=== PATIENT | male | born 1970 | race Caucasian/White ===

== ENCOUNTER 2021-04-19 11:50 | Inpatient (IN) | payer BC, OTHER ==
[~2021-04-19] VITALS: Ht 182 cm; Wt 132.4 kg
[2021-04-19] MEDS ORDERED: HEParin (CATH LAB) 2,000 ML IV ONE (12:31)
[2021-04-19] MEDS ORDERED: NS IV 1000 ML 1,000 ML ONE ×2 (12:31→16:10)
[2021-04-19] MEDS ORDERED: NITRO DRIP 25000 MCG/D5W 250 ML IV ONE (12:31)
[2021-04-19] MEDS ORDERED: LIDOCAINE 1% INJ 20 ML 20 ML VIAL ONE (12:31)
[2021-04-19] MEDS ORDERED: HEParin 1000 UNIT/ML (10ML VIAL) FOR BOLUS ONE (12:31)
[2021-04-19] MEDS ORDERED: VERAPAMIL 5 MG/2 ML (CALAN) VIAL IV ONE (12:32)
[2021-04-19 12:41] LABS: BASOPHILS # (AUTO) 0.1 10^3/uL (0.0-0.1); BASOPHILS % (AUTO) 1 % (0-10); EOSINOPHILS # (AUTO) 0.1 10^3/uL (0.0-0.3); EOSINOPHILS % (AUTO) 0 % (0-10); HEMATOCRIT 51 % (40-54); LYMPHOCYTES # (AUTO) 5.8 10^3/uL (1.0-4.0); LYMPHOCYTES % (AUTO) 33 % (12-44); MEAN CORPUSCULAR HEMOGLOBIN 29 pg (25-34); MEAN CORPUSCULAR HGB CONC 30 g/dL (32-36); MEAN CORPUSCULAR VOLUME 98 fL (80-99); MEAN PLATELET VOLUME 11.7 fL (9.0-12.2); MONOCYTES # (AUTO) 1.3 10^3/uL (0.0-1.0); MONOCYTES % (AUTO) 7 % (0-12); NEUTROPHILS # (AUTO) 9.1 10^3/uL (1.8-7.8); NEUTROPHILS % (AUTO) 52 % (42-75); PLATELET COUNT 188 10^3/uL (130-400); WHITE BLOOD COUNT 17.5 10^3/uL (4.3-11.0)
--- NOTE | 2021-04-19 12:50 | ED CPR ---
HPI-CPR General Chief Complaint: Code Blue Stated Complaint: CODE Source of Information: Patient Exam Limitations: No Limitations History of Present Illness Date Seen by Provider: Apr 19, 2021 Time Seen by Provider: 11:30 Initial Comments Patient is a 50yo male who presents to the emergency department from a local exercise/gym facility CPR in progress. local intermodal truck driver and firefighters states that they were called for the patient who had collapsed while exercising. Firefighters report that the patient was awake and talking when they arrived, he was found to be in V. tach. They were preparing to defibrillate him/cardiovert him and he went into V. fib. Patient was intubated on scene. He was defibrillated 2 or 3 times prior to arrival. He had 2 rounds of epinephrine, 1 amp of bicarbonate prior to arrival. When patient arrived he was intubated, attempting to breathe with the BVM. We did achieve brief ROSC. However the patient degenerated back into V. tach and V. fib and required multiple additional shocks after arrival. ACLS protocol was followed. Patient received a lidocaine bolus prior to arrival and additional lidocaine once in the emergency department. He received 1 g of mag, an amp of calcium gluconate, 1 more amp of bicarb multiple additional rounds of epinephrine, and epinephrine drip and finally a 300 mg push of amiodarone. After the last defibrillation and push of amiodarone the patient had ROSC again. He began fighting, moving all 4 extremities actively attempting to pull his ET tube. Patient was paralyzed with rocuronium sedated with fentanyl and Versed shortly afterwards. Maintained a pulse in the 70s to low 100s. Blood pressure systolic 100 up to as high as 130 after ROSC. Patient's EKGs were reviewed by me and also by the clipper machine operator, Dr. Saldana who arrived to the [facility] while in progress. Patient was taken emergently to the cardiac catheterization lab. Initial Complaints: Collapsed Witnessed Arrest: Yes Paramedics Initial Findings: V-FIB (V Tach by report) Pre Hospital Treatment: Bag Valve Mask, CPR/Thumper, Defibrillation, Intubation, Oxygen, IV Fluids, Epinephrine (mg), Lidocaine Bolus (mg), Sodium B icarb (amps) Allergies and Home Medications Allergies Coded Allergies: No Allergy Information Available (Unverified , 04/19/21) Patient Home Medication List Home Medication List Reviewed: Yes Review of Systems Review of Systems Constitutional: see HPI All Other Systems Reviewed Negative Unless Noted: Yes Physical Exam Vital Signs Vital Signs - First Documented 04/19/21 04/19/21 11:50 13:20 Temp 35.6 Pulse 167 Resp 14 B/P (MAP) 163/100 (121) Pulse Ox 98 O2 Delivery Ambu Bag O2 Flow Rate 15.00 FiO2 60 Capillary Refill : Height, Weight, BMI Height: '" Weight: lbs. oz. kg; BMI Method: General Appearance: WD/WN HEENT: Normal ENT Inspection Neck: Normal Inspection Respiratory: Lungs Clear (with bagging through ETT) Cardiovascular: Other (no pulse on presentation) Gastrointestinal: Distended Rectal: Other (patient had defecated after cardiac arrest) Extremity: Normal Inspection Neurologic/Psychiatric: Other (GCS = 3) Skin: Normal Color, Warm/Dry Focused Exam Lactate Level Lactic Acid Level Progress/Results/Core Measures Results/Orders Lab Results Laboratory Tests Test 04/19/21 12:31 04/19/21 12:32 Range/Units White Blood Count 17.5 H 4.3-11.0 10^3/uL Red Blood Count 5.16 4.30-5.52 10^6/uL Hemoglobin 15.0 13.3-17.7 g/dL Hematocrit 51 40-54 % Mean Corpuscular Volume 98 80-99 fL Mean Corpuscular Hemoglobin 29 25-34 pg Mean Corpuscular Hemoglobin Concent 30 L 32-36 g/dL Red Cell Distribution Width 13.6 10.0-14.5 % Platelet Count 188 130-400 10^3/uL Mean Platelet Volume 11.7 9.0-12.2 fL Immature Granulocyte % (Auto) 7 % Neutrophils (%) (Auto) 52 42-75 % Lymphocytes (%) (Auto) 33 12-44 % Monocytes (%) (Auto) 7 0-12 % Eosinophils (%) (Auto) 0 0-10 % Basophils (%) (Auto) 1 0-10 % Neutrophils # (Auto) 9.1 H 1.8-7.8 10^3/uL Lymphocytes # (Auto) 5.8 H 1.0-4.0 10^3/uL Monocytes # (Auto) 1.3 H 0.0-1.0 10^3/uL Eosinophils # (Auto) 0.1 0.0-0.3 10^3/uL Basophils # (Auto) 0.1 0.0-0.1 10^3/uL Immature Granulocyte # (Auto) 1.2 H 0.0-0.1 10^3/uL Neutrophils % (Manual) 47 % Lymphocytes % (Manual) 34 % Monocytes % (Manual) 11 % Basophils % (Manual) 2 % Band Neutrophils 2 % Reactive Lymphocytes 4 % Blood Morphology Comment NORMAL SARS-CoV-2 RNA (RT-PCR) Not Detected Not Detecte My Orders Orders - MYLENE HARRIS MD Creatine Kinase (04/19/21 12:44) Creatine Kinase Mb (04/19/21 12:44) Covid 19 Inhouse Test (04/19/21 12:44) Arterial Blood Gas (04/19/21 12:44) Ekg Tracing (04/19/21 12:44) Ekg-Prn For Chest Pain Or Rhyt (04/19/21 12:44) Drug Screen Stat (Urine) (04/19/21 13:13) Vital Signs/I&O 04/19/21 04/19/21 04/19/21 11:50 12:42 13:20 Temp 35.6 Pulse 167 90 114 Resp 14 16 20 B/P (MAP) 163/100 (121) 112/67 Pulse Ox 98 97 96 O2 Delivery Ambu Bag Mechanical Ventilator O2 Flow Rate 15.00 FiO2 60 Initial ECG Impression Date: Apr 19, 2021 Initial ECG Impression Time: 11:53 Initial ECG Rate: 197 Initial ECG Rhythm: A Fib/Flutter Initial ECG Impression: Atrial Fibrillation w/RVR EKG : EKG Time: 12:21 Rate: 91 Rhythm: Normal Sinus Critical Care Note Critical Care Start Time: 11:30 Stop Time: 12:30 Total Time (minutes) 1 hour critical care time in the evaluation and management of this patient with cardiac arrest. Time includes management of ACLS protocol, continued resuscitative efforts, review of the medical record, review and interpretation of laboratory studies, discussion with cardiology. Departure Impression Primary Impression: Cardiac arrest Disposition: ADMITTED INPATIENT Condition: Stable Admissions Decision to Admit Reason: Admit from ER (General) Decision to Admit/Date: Apr 19, 2021 Time/Decision to Admit Time: 12:40 MYLENE HARRIS MD Apr 19, 2021 12:50
--- NOTE | 2021-04-19 12:54 | Consultation-Cardiology ---
HPI-Cardiology Cardiology Consultation: Date of Consultation 04/19/21 Date of Admission 04/19/2021 Attending Physician Admitting Physician Consulting Physician PALOMA GANDHI JR, MD HPI: Time Seen by a Provider: 12:30 Chief Complaint: Reason for consultation: Status post out of hospital witnessed cardiac arrest. Jaydon is a 50-year-old man with no known history of coronary artery disease. I obtained the history from the senior marketing coordinator, emergency room physician and the patient's significant other. Apparently, he was at a local gym exercising and suddenly collapsed. Some bystanders came to his attention and were having trouble arousing him. Someone called 911 and upon arrival of the emergency squad, he was minimally responsive. Shortly after they hooked up the monitor, he went into ventricular tachycardia and before they could shock him, this degenerated into ventricular fibrillation. ACLS protocol was then initiated in the field. He was intubated in the field. He received 1 or 2 other defibrillations. Intraosseous access was obtained. He was given IO lidocaine and started on a li docaine infusion and brought to the emergency room for further evaluation. In the emergency room he was pulseless and continued to have ventricular tachycardia and fibrillation. CPR was continued. Multiple rounds of ACLS protocol medication were administered. I was also notified around this time. When I saw the patient in the emergency room, he was still in a disorganized rhythm with no pulse and CPR was continued. An amiodarone bolus was administered. The defibrillator patches were adjusted and after 1 more defibrillation, the patient converted to a sinus rhythm. At that point, he had spontaneous circulation. He started becoming combative and actually had to be paralyzed. At that point, we elected to proceed with emergency cardiac catheterization. No other history could be obtained from the patient. Review of Systems-Cardiology Review of Systems Other comments Not obtainable due to the patient's clinical status. WIL-Yrnwxr-Odteks Hx Past Medical History PMH As described under Assessment. Family Medical History Family Medical History: Not obtainable due to the patient's clinical status. Allergies and Home Medications Allergies Coded Allergies: No Allergy Information Available (Unverified , 04/19/21) Patient Home Medication List Home Medication List Reviewed: Yes Exam Vital Signs Vital Signs Date Time Temp Pulse Resp B/P (MAP) Pulse Ox O2 Delivery O2 Flow Rate FiO2 04/19/21 14:28 37.2 Mechanical Ventilator 60.00 04/19/21 14:00 109 19 97 Physical Exam General: He is intubated and sedated. Well nourished and appears stated age. Eye: Conjunctivae are clear. There are no xanthelasma. HENT: Normocephalic. Atraumatic. Carotid pulsations 2/2 without bruits. Neck: Jugular venous pressure does not appear elevated. No thyromegaly a ppreciated. Respiratory: Symmetrical expansion bilaterally. Coarse breath sounds to the ventilator. Cardiovascular: Normal rate. Regular rhythm. No murmur. No gallop. Point of maximal impulse is not appear displaced. Good pulses equal in all extremities. No edema. Gastrointestinal: Soft. Normal bowel sounds. Skin: Skin turgor is normal. There is no pallor. Musculoskeletal: No kyphosis or scoliosis appreciated. Neurologic: Intubated and sedated. However, once the patient regained spontaneous circulation, he was moving all 4 extremities and trying to reach up to remove the endotracheal tube. At that point he had to be paralyzed for his own safety. Psychiatric: Not obtainable due to clinical status. Labs Laboratory Tests Test 04/19/21 00:00 04/19/21 12:31 04/19/21 12:32 04/19/21 13:53 Range/Units White Blood Count 17.5 H 4.3-11.0 10^3/uL Red Blood Count 5.16 4.30-5.52 10^6/uL Hemoglobin 15.0 13.3-17.7 g/dL Hematocrit 51 40-54 % Mean Corpuscular Volume 98 80-99 fL Mean Corpuscular Hemoglobin 29 25-34 pg Mean Corpuscular Hemoglobin Concent 30 L 32-36 g/dL Red Cell Distribution Width 13.6 10.0-14.5 % Platelet Count 188 130-400 10^3/uL Mean Platelet Volume 11.7 9.0-12.2 fL Immature Granulocyte % (Auto) 7 % Neutrophils (%) (Auto) 52 42-75 % Lymphocytes (%) (Auto) 33 12-44 % Monocytes (%) (Auto) 7 0-12 % Eosinophils (%) (Auto) 0 0-10 % Basophils (%) (Auto) 1 0-10 % Neutrophils # (Auto) 9.1 H 1.8-7.8 10^3/uL Lymphocytes # (Auto) 5.8 H 1.0-4.0 10^3/uL Monocytes # (Auto) 1.3 H 0.0-1.0 10^3/uL Eosinophils # (Auto) 0.1 0.0-0.3 10^3/uL Basophils # (Auto) 0.1 0.0-0.1 10^3/uL Immature Granulocyte # (Auto) 1.2 H 0.0-0.1 10^3/uL Neutrophils % (Manual) 47 % Lymphocytes % (Manual) 34 % Monocytes % (Manual) 11 % Basophils % (Manual) 2 % Band Neutrophils 2 % Reactive Lymphocytes 4 % Blood Morphology Comment NORMAL SARS-CoV-2 RNA (RT-PCR) Not Detected Not Detecte Glucometer 147 H 70-110 MG/DL Radiology CARDIAC CATHETERIZATION (04/19/2021): 1. Markedly elevated left ventricular end-diastolic pressure. 2. Angiographically normal-appearing coronary arteries in a right dominant system. ECHOCARDIOGRAM (04/19/2021): 1. This is a technically difficult study due to poor image quality secondary to the patient's body habitus and intubated status. 2. There is moderate left ventricular dilatation with normal wall thickness. There is severe left ventricular systolic dysfunction with an estimated ejection fraction of 20-25% with global hypokinesis. 3. The left ventricular diastolic parameters appear normal. 4. The right ventricle is normal in size but with at least mildly reduced function. 5. The estimated pulmonary artery systolic pressure is 29 mmHg plus right atrial pressure. ECG Impression ECG Initial ECG Impression Date: Apr 19, 2021 Comment Sinus rhythm with left atrial abnormality and nonspecific intraventricular conduction delay. Diagnosis/Problems Diagnosis/Problems (1) Cardiac arrest Assessment & Plan: Exact etiology unclear. There is no evidence of Sabino- Parkinson-White, Brugada syndrome, or prolonged or short QT on his resting electrocardiogram. He underwent emergency cardiac catheterization that did not show any significant coronary artery disease. On the other hand, he has severe left ventricular systolic dysfunction. This raises a concern for cardiomyopathy of undetermined etiology with primary arrhythmogenic cardiac arrest. On the other hand, he could have globally stunned myocardium from the prolonged course of resuscitation. I will plan on a follow-up echocardiogram in the next 24-48 hours to see if there is any improvement in the ejection fraction. I will start him on guideline directed medical therapy with low-dose beta-jinny and ROSSANA inhibitor. (2) Ventricular fibrillation Assessment & Plan: Unclear etiology. As above, there is no evidence of prolonged or short QT on his resting electrocardiogram. We may need to consider a LifeVest prior to discharge. I will take the liberty of placing an order for a LifeVest. (3) Cardiomyopathy Assessment & Plan: As above, unclear whether or not this was a pre-existing cardiomyopathy or if he has global stunning due to the prolonged resuscitative efforts. As above, I will place him on guideline directed medical therapy at very low doses. I will plan on a follow-up echocardiogram in the next 24 to 48 hours. (4) Acute on chronic respiratory failure with hypoxemia Assessment & Plan: This was most likely due to the cardiac arrest. He is now intubated. We may want to consider keeping him on the ventilator overnight and then gradually withdrawing sedation tomorrow and see if we can wean him from the ventilator sometime tomorrow. The eICU is also following the patient in regards to ventilator management. PALOMA GANDHI JR, MD Apr 19, 2021 12:54
--- NOTE | 2021-04-19 12:56 | Pre-Op Note & Conscious Sedat ---
Pre-Operative Progress Note H&P Reviewed The H&P was reviewed, patient examined and no changes noted. Date H&P Reviewed: Apr 19, 2021 Time H&P Reviewed: 12:55 Conscious Sedation Pre-Proced Time 12:55 ASA Score 4 For ASA 3 and 4: Consider anesthesia and medical clearance. Also, for patients with a history of failed moderate sedation consider anesthesia. Airway Lungs Heart ASA score ASA 1: a normal healthy patient ASA 2: a patient with a mild systemic disease (mid diabetes, controlled hypertension, obesity ASA 3: a patient with a severe systemic disease that limits activity (angina, COPD, prior Myocardial infarction) ASA 4: a patient with an incapacitating disease that is a constant threat to life (CHF, renal failure) ASA 5: a moribund patient not expected to survive 24 hrs. (ruptured aneurysm) ASA 6: a declared brain- patient whose organs are being harvested. For emergent operations, add the letter E after the classification Mallampati Classification Grade 3 Sedation Plan Analgesia, Amnesia, Plan communicated to team members, Discussed options with patient/fam, Discussed risks with patient/fam The patient is an appropriate candidate to undergo the planned procedure, sedation, and anesthesia. The patient immediately re-assessed prior to indication. The patient was intubated and placed on mechanical ventilation in the emergency room. He was then administered a paralytic agent. PALOMA GANDHI JR, MD Apr 19, 2021 12:56
[2021-04-19] MEDS ORDERED: PROPOFOL DRIP (ICU) 100 ML IV ONE (13:00)
--- NOTE | 2021-04-19 13:03 | Diagnostic Imaging Report ---
INDICATION: Post code, intubation COMPARISON: None available TECHNIQUE: Single radiograph of the chest dated 04/19/2021 FINDINGS: Endotracheal tube is present with the distal tip overlying the tracheal air column at the level of the clavicular heads. Enteric catheter is present with the distal tip terminating overlying the left upper abdomen, likely near the GE junction. The sidehole appears to be within the distal esophagus. The cardiac silhouette is enlarged. Central pulmonary vascular congestion is present. Low lung volumes. Mild left greater than right predominantly interstitial opacities. No significant pleural effusion. No pneumothorax. No acute osseous abnormality. IMPRESSION: Cardiomegaly with central pulmonary vascular congestion. Low lung volumes with mild left greater than right bibasilar atelectasis and/or pneumonitis. Enteric catheter is present, though the sidehole is within the distal esophagus. Recommend advancement of 8 cm for optimal positioning. Additional findings as above. Dictated by: Dictated on workstation # [id number]
[2021-04-19 13:20] VITALS: BP 162/119
[2021-04-19 13:31] LABS: BAND NEUTROPHILS 2 %; BASOPHILS % (MANUAL) 2 %; LYMPHOCYTES % (MANUAL) 34 %; MONOCYTES % (MANUAL) 11 %; NEUTROPHILS % (MANUAL) 47 %; RBC MORPH NORMAL; REACTIVE LYMPHOCYTES 4 %
--- NOTE | 2021-04-19 14:30 | Consultation - Hospitalist ---
HPI History of Present Illness: HPI/Chief Complaint Pt is a 50yoCM with an apparent PMH of a fib who presented to the ER due to cardiac arrest. He is unable to provide me any history and all history is obtained from the records. He was apparently exercising at a local gym and collapsed. Per ER note he was awake and tlaking with EMS when they arrived and he was found to be in v-tach. They were preparing for synchronized cardioversion in the field when he converted to v fib. He was then intuabted and defibrillated but remained in refractory v fib. In the ER here he was started on lidocaine and they continued to follow ACLS algorithms for pulseless v-fib. He ultimately developed ROSC after a 300mg amiodarone bolus and defibrillation. He was taken emergently to the clay processing labourer for possible intervention. Per Dr Saldana cath was clean. He was admitted to the ICU and I am consulted for medical management. Source: patient Date Seen 04/19/21 Attending Physician Samy Saldana Jr, MD PCP No,Local Physician Referring Physician Date of Admission Apr 19, 2021 at 13:37 Home Medications & Allergies Home Medications Reviewed patient Home Medication Reconciliation performed by pharmacy medication reconciliations cooking appliance repair technician and/or nursing. Patients Allergies have been reviewed. Past Abaujle-Tetjyt-Iqmvvp Hx Past Medical History Atrial Fibrillation history limited as no family available and he has never been to this facility before Family Medical History Reviewed Nursing Family Hx No Pertinent Family Hx Review of Systems ROS-Unable to Obtain: intubated and sedated Constitutional: see HPI Physical Exam Physical Exam Vital Signs Vital Signs - First Documented 04/19/21 11:50 Temp 35.6 Pulse 167 Resp 14 B/P (MAP) 163/100 (121) Pulse Ox 98 O2 Delivery Ambu Bag O2 Flow Rate 15.00 Capillary Refill : Height, Weight, BMI Height: '" Weight: lbs. oz. kg; 42.00 BMI Method: General Appearance: Obese, Other (intubated, sedated) HEENT: No Scleral Icterus (L), No Scleral Icterus (R); Other (pupils reactive though right appears more sluggish both accomodate) Neck: Normal Inspection, Supple Respiratory: Lungs Clear, No Accessory Muscle Use, No Respiratory Distress Cardiovascular: Regular Rate, Rhythm, No Murmur Gastrointestinal: Normal Bowel Sounds, Non Tender, Soft Genital/Rectal: Other (argueta in place with red tinged urine) Extremity: Normal Capillary Refill, No Calf Tenderness, No Pedal Edema Neurologic/Psychiatric: Other (sedated and intubated- did not respond- had received paralytics in clay processing labourer) Results Results/Procedures Labs Laboratory Tests 04/19/21 12:31 Patient resulted labs reviewed. Imaging: Reviewed Imaging Report Imaging [facility], [place] NAME: JOHAN CASTILLO [facility] REC#: [id number] PT STATUS: REG ER : 1970 PHYSICIAN: ASTRID BASS CLIP RIVETER ADMIT DATE: 04/19/21/ER Draft Date of Exam:04/19/21 CHEST 1 VIEW, AP/PA ONLY INDICATION: Post code, intubation COMPARISON: None available TECHNIQUE: Single radiograph of the chest dated 04/19/2021 FINDINGS: Endotracheal tube is present with the distal tip overlying the tracheal air column at the level of the clavicular heads. Enteric catheter is present with the distal tip terminating overlying the left upper abdomen, likely near the GE junction. The sidehole appears to be within the distal esophagus. The cardiac silhouette is enlarged. Central pulmonary vascular congestion is present. Low lung volumes. Mild left greater than right predominantly interstitial opacities. No significant pleural effusion. No pneumothorax. No acute osseous abnormality. IMPRESSION: Cardiomegaly with central pulmonary vascular congestion. Low lung volumes with mild left greater than right bibasilar atelectasis and/or pneumonitis. Enteric catheter is present, though the sidehole is within the distal esophagus. Recommend advancement of 8 cm for optimal positioning. Additional findings as above. Dictated on workstation # [id number] Dict: 04/19/21 1259 Trans: 04/19/21 1302 CVB [id number] Interpreted by: AUDREY ZAVALA MD Electronically signed by: Assessment/Plan Assessment and Plan Assess & Plan/Chief Complaint Cardiac arrest due to ventricular arrythmia with ROSC Acute respiratory failure s/p cath with reported clean coronaries currently on epi gtt Will give paralytics some time to wear off and if still unresponsive with likely start therapeutic hypothermia was reportedly following commands and making purposeful movement in the ER and evne clay processing labourer prior to paralytics CT head ordered Covid negative UDS ordered Discussed with TeleICU Maintain on vent- management per eICU Leukocytosis Likely reactive Hyperglycemia Nonfasting and probably reactive as well trend, add sliding scale DVT ppx: SCDs only until CT head back Diagnosis/Problems Diagnosis/Problems (1) Acute respiratory failure (2) Ventricular fibrillation (3) Ventricular tachycardia (4) Hyperglycemia (5) Cardiogenic shock (6) Cardiac arrest BUBBA LOPEZ MD Apr 19, 2021 14:30
--- NOTE | 2021-04-19 14:52 | Tele-ICU Consult ---
History of Present Illness History of Present Illness Date Seen by Provider: Apr 19, 2021 Time Seen by Provider: 14:51 Date of Admission 04/19/2021 Reason for Visit: Cardiac arrest History of Present Illness This gentleman who is a 58-year-old male apparently was exercising at local gym and had eye redness collapse and EMS was called and they found him in itially in ventricular tachycardia which are deteriorated to ventricular fibrillation. CPR done intubated brought to the emergency room. Immediately seen by solution spec and Came to the cardiac catheterization lab and coronary angiogram done which is shoulder no significant coronary artery dis ease. I have discussed with the attending physician and subsequently ordered a CTA of the head which did not reveal any bleeding or acute abnormalities. Patient is waking up and trying to remove ET tube another tubes. Hence he is not cooled therapeutically. Is currently on a low-dose epinephrine drip and propofol drip. I have reviewed his x-rays and the laboratory data. According to the ER attending physician patient is on Xarelto, Cardizem and some other medications suspicious that he may have a atrial fibrillation prearrest. I have video visited him and discussed with the bedside RN as well. At this time we'll keep him sedated and not planning to extubate him because of the uncertainty of the stability of his cardiovascular system. No further history available however his drug screen ordered and I will try to get a history from the family whether he uses any energy drinks such as 5-hour energy drink. It is not clear whether he has any drug abuse or tobacco abuse. Allergies and Home Medications Allergies Coded Allergies: No Allergy Information Available (Unverified , 04/19/21) Past Medical/Social/Family Hx Past Medical History history limited as no family available and he has never been to this facility before Review of Systems Constitutional: see HPI (per attending physician) Other per attending physician Sepsis Event Evaluation Height, Weight, BMI Height: '" Weight: lbs. oz. kg; 42.00 BMI Method: Exam Exam Patient acknowledged, consented, and participated in this virtual visit which was conducted using real time audio/video Vital Signs Date Time Temp Pulse Resp B/P (MAP) Pulse Ox O2 Delivery O2 Flow Rate FiO2 04/19/21 14:28 37.2 Mechanical Ventilator 60.00 04/19/21 14:00 109 19 155/125 (135) 97 Mechanical Ventilator 60.00 04/19/21 13:45 111 19 162/127 (139) 97 Mechanical Ventilator 60.00 04/19/21 13:41 113 04/19/21 11:50 35.6 167 14 163/100 (121) 98 Ambu Bag 15.00 Height & Weight Height: '" Weight: lbs. oz. kg; 42.00 BMI Method: General Appearance: Obese, Other (intubated, sedated) HEENT: No Scleral Icterus (L), No Scleral Icterus (R); Other (pupils reactive though right appears more sluggish both accomodate) Neck: Normal Inspection, Supple Respiratory: Lungs Clear, No Accessory Muscle Use, No Respiratory Distress Cardiovascular: Regular Rate, Rhythm, No Murmur Capillary Refill: Greater Than 3 Seconds Extremity: Normal Capillary Refill, No Calf Tenderness, No Pedal Edema Neurologic/Psychiatric: Other (sedated and intubated- did not respond- had received paralytics in laboratory associate) Other comments ros per attending physician Results Lab Laboratory Tests 04/19/21 12:31 Radiology cxr reviewed by myself Assessment/Plan Assessment/Plan 1. Weakness due to cardiac arrest imaging due to ventricular fibrillation/ventricular tachycardia of undetermined etiology. 2. Acute hypoxic respiratory failure secondary to the abnormal 3. Questionable history of atrial fibrillation and on anticoagulant therapy. 4. Hypotension secondary to cardiac arrest of undetermined etiology. Recommendations 1. Continue mechanical ventilatory support at least for today and will revisit his mental status tomorrow and depending upon overall clinical situation will consider spontaneous breathing trial tomorrow. 2. Epinephrine drip to keep map over 65 3. Sedation with propofol and Precedex as tolerated 4. Ulcer prophylaxis with Protonix and SCDs for DVT prophylaxis. 5. Awaiting INR and urine drug screen and other laboratory data. 6. Discussed with the attending physician Dr. Nelson Critical Care: Ventilator Management Time spent with patient (mins): 60 Diagnosis/Problems Problems/Diagonsis (1) Ventricular fibrillation (2) Cardiac arrest (3) Cardiogenic shock (4) Acute respiratory failure BRIAN CAREY MD Apr 19, 2021 14:52
--- NOTE | 2021-04-19 15:15 | Cardiac Cath Report ---
CARDIAC CATHETERIZATION DATE OF PROCEDURE: 04/19/2021 INDICATION: Cardiac arrest. HISTORY: The patient is a 50 year old male, with no previously known history of coronary artery disease. He was exercising at a local gym and had witness collapsed. He was minimally responsive. 911 was called and on arrival of the emergency squad, he was again minimally responsive. When he was attached to the monitor, he was in ventricular tachycardia. As the assisted living home director were preparing to perform a defibrillation, the patient went into ventricular fibrillation. He subsequently underwent defibrillation and ACLS protocol was initiated. He was intubated in the field. He was brought to the emergency room for further evaluation and treatment. After almost 50 minutes of ACLS and CPR, the patient regained spontaneous circulation. An electrocardiogram did not show any evidence of a STEMI at that time. However, in light of his age and the outpatient cardiac arrest, we elected to proceed with emergency cardiac catheterization. PROCEDURES PERFORMED: 1. Left heart catheterization with hemodynamic measurements. 2. Diagnostic [place] coronary angiography PROCEDURE DESCRIPTION: Left heart catheterization was performed through the right radial artery utilizing a 6 Urdu system by percutaneous approach. Standard Pio catheters were utilized for the diagnostic portion of the procedure. All catheters were exchanged over a guidewire. RESULTS: HEMODYNAMICS: The aortic pressure was 178/104 mmHg. The left ventricular pressure was 170 over 0 mmHg with a left ventricular end-diastolic pressure of 40 mmHg. There was no significant pressure gradient upon pullback across aortic valve. CORONARY ANGIOGRAPHY: Left main coronary artery: Large and free of significant disease. Left anterior descending coronary artery: Free of significant disease. Left circumflex coronary artery: Free of significant disease. Right coronary artery: Large in caliber, dominant, and free of significant disease. IMPRESSION: 1. Markedly elevated left ventricular end-diastolic pressure. 2. Angiographically normal-appearing coronary arteries in a right dominant system. PALOMA GANDHI JR, MD Apr 19, 2021 15:15
[2021-04-19 15:17] VITALS: BP 89/61
[2021-04-19] MEDS ORDERED: LIDOCAINE DRIP PRE-MIX 2 GM/500 ML BAG IV ONE (15:23)
[2021-04-19] MEDS ORDERED: fentaNYL INJ 100 MCG/2 ML AMP IV ONE (15:23)
[2021-04-19] MEDS ORDERED: AMIODARONE (BOLUS) 150 MG/3 ML IV ONE (15:23)
[2021-04-19] MEDS ORDERED: SODIUM BICARB 8.4% 50 MEQ/50 ML (ABBOTT) SYR INJ ONE (15:23)
[2021-04-19] MEDS ORDERED: LIDOCAINE BOLUS 100 MG/5 ML (IMS) SYR INJ ONE (15:23)
[2021-04-19] MEDS ORDERED: ROCURONIUM 10 MG/ML 5 ML SYRINGE IV ONE (15:23)
[2021-04-19] MEDS ORDERED: MIDAZOLAM 5 MG/5 ML (VERSED) VIAL IJ ONE (15:23)
[2021-04-19] MEDS ORDERED: CALCIUM CHLORIDE 1 GM/10 ML (IMS) SYR INJ ONE (15:23)
[2021-04-19] MEDS ORDERED: EPINEPHrine 0.1 MG/ML 10 ML (HOSPIRA) SYR IJ ONE (15:23)
[2021-04-19] MEDS ORDERED: NS 250 ML (IVPB) BAG IV ONE (15:23)
[2021-04-19] MEDS ORDERED: CATHETER FLUSH 10 ML SYR IV ONE (15:23)
[2021-04-19] MEDS ORDERED: EPINEPHrine INJECTION 1 MG/ML AMP IJ ONE (15:23)
[2021-04-19] MEDS ORDERED: MAGNESIUM SULF 5 GM/10 ML VIAL IV ONE (15:23)
[2021-04-19] MEDS ORDERED: DexMEDEtomidine 250 ML DRIP 250 ML IV ONE (15:30)
--- NOTE | 2021-04-19 15:33 | Diagnostic Imaging Report ---
PROCEDURE: CT head wo r/o stroke. TECHNIQUE: Multiple contiguous axial images were obtained through the brain without the use of intravenous contrast. Auto Exposure Controls were utilized during the CT exam to meet ALARA standards for radiation dose reduction. INDICATION: ICU code. Stroke. COMPARISON: None. FINDINGS: No intracranial hemorrhage, mass effect, hydrocephalus, or extra-axial fluid collections. No CT evidence of a territorial infarction. Osseous structures are intact. Paranasal sinuses and mastoids are clear. ETT. IMPRESSION: No acute intracranial CT findings. Dictated by: Dictated on workstation # [id number]
[2021-04-19] MEDS ORDERED: inSUlin ASPART (NovoLOG) 1 UNIT/0.01 ML (CHARGE PER UNIT) SC SCH (16:00)
--- NOTE | 2021-04-19 16:13 | Consultation - Surgery ---
History of Present Illness History of Present Illness Patient Consulted On(rosaura/time) 04/19/21 16:07 Time Seen by Provider: 15:43 Reason for Visit: Cardiac arrest History of Present Illness Surgery asked to consult regarding Venous Insufficiency, Hypotension. HPI per ED: Patient is a 50yo male who presents to the emergency department from a local exercise/gym facility CPR in progress. 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 Firefighters report that the patient was awake and talking when they arrived, he was found to be in V. tach. They were preparing to defibrillate him/cardiovert him and he went into V. fib. Patient was intubated on scene. He was defibrillated 2 or 3 times prior to arrival. He had 2 rounds of epinephrine, 1 amp of bicarbonate prior to arrival. When patient arrived he was intubated, attempting to breathe with the BVM. We did achieve brief ROSC. However the patient degenerated back into V. tach and V. fib and required multiple additional shocks after arrival. ACLS protocol was followed. Patient received a lidocaine bolus prior to arrival and additional lidocaine once in the emergency department. He received 1 g of mag, an amp of calcium gluconate, 1 more amp of bicarb multiple additional ro unds of epinephrine, and epinephrine drip and finally a 300 mg push of amiodarone. After the last defibrillation and push of amiodarone the patient had ROSC again. He began fighting, moving all 4 extremities actively attempting to pull his ET tube. Patient was paralyzed with rocuronium sedated with fentanyl and Versed shortly afterwards. Maintained a pulse in the 70s to low 100s. Blood pressure systolic 100 up to as high as 130 after ROSC. Patient's EKGs were reviewed by me and also by the nuclear spectroscopist, Dr. Saldana who arrived to the code while in progress. When I saw pt he was intubated and mostly sedated, could not answer questions and no family at bedside. Allergies and Home Medications Allergies Coded Allergies: No Allergy Information Available (Unverified , 04/19/21) Patient Home Medication List Home Medication List Reviewed: Yes (list of possible meds reviewed it is not an official home med list) Past Hqgnlgl-Sgejuo-Sqhrtm Hx Patient Social History Have you traveled recently?: Unable to obtain Cardiovascular Cardiac Disorders: Atrial Fibrillation Family Medical History Significant Family History: Other Conditions/Hx (unable to obtain, pt intubated) Other Unable to obtain, pt intubated Review of Systems-General ROS-Unable to Obtain: pt intubated and sedated Physical Exam-General Problems Physical Exam Vital Signs Vital Signs - First Documented 04/19/21 04/19/21 11:50 15:17 Temp 35.6 Pulse 167 Resp 14 B/P (MAP) 163/100 (121) Pulse Ox 98 O2 Delivery Ambu Bag O2 Flow Rate 15.00 FiO2 40 Capillary Refill : Greater Than 3 Seconds General Appearance: mild distress, obese Eyes: Bilateral Eye PERRL, Bilateral Eye EOMI HEENT: No scleral icterus (R), No scleral icterus (L); other (ET tube in place) Respiratory: lungs clear, no respiratory distress, no accessory muscle use Cardiovascular: no murmur, tachycardia Gastrointestinal: non tender, soft, no organomegaly Extremities: no pedal edema, normal capillary refill Neurologic/Psychiatric: other (unable to obtain) Skin: normal color, warm/dry Lymphatic: no adenopathy (neck, axilla or groin) Data Review Labs Laboratory Tests 04/19/21 00:00: 04/19/21 12:31: White Blood Count 17.5H, Red Blood Count 5.16, Hemoglobin 15.0, Hematocrit 51, Mean Corpuscular Volume 98, Mean Corpuscular Hemoglobin 29, Mean Corpuscular Hemoglobin Concent 30L, Red Cell Distribution Width 13.6, Platelet Count 188, Mean Platelet Volume 11.7, Immature Granulocyte % (Auto) 7, Neutrophils (%) (Auto) 52, Lymphocytes (%) (Auto) 33, Monocytes (%) (Auto) 7, Eosinophils (%) (Auto) 0, Basophils (%) (Auto) 1, Neutrophils # (Auto) 9.1H, Lymphocytes # (Auto) 5.8H, Monocytes # (Auto) 1.3H, Eosinophils # (Auto) 0.1, Basophils # (Auto) 0.1, Immature Granulocyte # (Auto) 1.2H, Neutrophils % (Manual) 47, Lymphocytes % (Manual) 34, Monocytes % (Manual) 11, Basophils % (Manual) 2, Band Neutrophils 2, Reactive Lymphocytes 4, Blood Morphology Comment NORMAL 04/19/21 12:32: SARS-CoV-2 RNA (RT-PCR) Not Detected 04/19/21 13:53: Glucometer 147H Assessment/Plan Assessment/Plan Assessment/Plan Venous Insufficiency Hypotension S/P Cardiac Arrest and CPR Pt needed central line and art line, placed with US guidance. [facility]. DESTINY AGUERO DO Apr 19, 2021 16:13
--- NOTE | 2021-04-19 16:16 | Progress Note-Post Operative ---
Post-Operative Progess Note Surgeon (s)/Casting Machine Operator (s) Surgeon DESTINY AGUERO DO Casting Machine Operator: none Pre-Operative Diagnosis Venous insufficiency, Hypotension Post-Operative Diagnosis Same Procedure & Operative Findings Date of Procedure 04/19/21 Procedure Performed/Findings Central line placement Arterial line placement The patient was in their bed in the ICU, was prepped and draped in the sterile fashion. A surgical pause was performed. Ultrasound was used to locate the internal jugular vein. Once located anesthetic was infiltrated above it. Using an 18 gauge finder needle and watching with the US; the right internal jugular vein was accessed. Dark nonpulsatile blood was withdrawn. The wire was inserted. Fluoroscopy assured proper placement. The needle was removed. A [#11] blade scalpel was used to make a stab incision along the guidewire. Dilator sheath was then advanced over the wire using Seldinger technique and the dilator was removed. The [place] catheter was inserted over the guide wire using the Seldinger technique. The [place] wire was removed. The catheter was then accessed in all three ports without difficulty. Good flash of blood was seen and it was then flushed with saline. The catheter was sutured in place with 3-0 silk on a val needle. The areas were then washed and dried. Sterile dressing was placed over incision. The patient tolerated the procedure well without complication. I next turned my attention to placing an arterial line. Using ultrasound I found the left radial artery. I then sterilely prepped the area and using US watched as the needle advanced into the artery, good flash of blood was seen. Able to easily advance the guidewire and then advance the catheter. Removed the needle and the catheter; hooked the arterial line tubing up and good wave form seen on the monitor. Sterile dressing placed and extra tape to keep arterial line in place. Pt tolerated this well. Anesthesia Type pt on propofol Estimated Blood Loss Estimated blood loss (mL): scant Specimens/Packing Specimens Removed none DESTINY AGUERO DO Apr 19, 2021 16:16
[2021-04-19] MEDS ORDERED: NOREPINEPHRINE 8 MG/250 ML 250 ML IV ONE (17:06)
[2021-04-19 17:11] LABS: ABG BASE EXCESS -11.8 MMOL/L (-2.5-2.5); ABG OXYGEN SATURATION 99 % (94-100); ABG PCO2 40 MMHG (35-45); ABG PO2 136 MMHG (79-93)
[2021-04-19 17:12] LABS: ALLENS TEST ART LINE; INSPIRED O2 50%; PATIENT TEMP 37.3; VENTILATOR YES
[2021-04-19 17:17] LABS: ABG PH 7.19 (7.37-7.43)
[2021-04-19] MEDS: NOREPINEPHRINE 8 MG/250 ML 250 ML IV SCH (17:19)
[2021-04-19] MEDS: DOBUTamine DRIP 250 ML IV SCH ×3 (17:22→23:42)
[2021-04-19] MEDS ORDERED: SODIUM BICARB 8.4% 50 MEQ/50 ML VIAL IV ONE (17:30)
[2021-04-19] MEDS ORDERED: SODIUM BICARB 8.4% 50 MEQ/50 ML (ABBOTT) SYR IV NR (17:30)
[2021-04-19 17:38] LABS: ALBUMIN 3.7 GM/DL (3.2-4.5); POTASSIUM 3.5 MMOL/L (3.6-5.0)
[2021-04-19 17:39] LABS: CALCIUM 8.8 MG/DL (8.5-10.1)
[2021-04-19 17:41] LABS: TOTAL PROTEIN 6.2 GM/DL (6.4-8.2)
[2021-04-19] MEDS: PROPOFOL DRIP (ICU) 100 ML IV SCH ×3 (17:41→22:34)
[2021-04-19 17:44] LABS: CREATININE SERUM 2.36 MG/DL (0.60-1.30)
[2021-04-19] MEDS: DexMEDEtomidine 250 ML DRIP 250 ML IV SCH (17:50)
[2021-04-19 17:55] LABS: CREATINE KINASE MB 6.1 NG/ML (<6.6)
[2021-04-19 18:10] VITALS: BP 107/84
[2021-04-19] MEDS ORDERED: POTASSIUM CL 10MEQ/50ML IVPB 50 ML IV SCH (18:45)
[2021-04-19] MEDS: POTASSIUM CL 10MEQ/50ML IVPB 50 ML IV SCH ×2 (19:31→20:39)
[2021-04-19 20:48] LABS: ABG BASE EXCESS -2.7 MMOL/L (-2.5-2.5); ABG OXYGEN SATURATION 99 % (94-100); ABG PCO2 41 MMHG (35-45); ABG PH 7.35 (7.37-7.43); ABG PO2 152 MMHG (79-93); ABG TCO2 23.1 MMOL/L (21.0-31.0)
[2021-04-19 20:49] LABS: ALLENS TEST ART LINE; INSPIRED O2 35%; VENTILATOR YES
[2021-04-19 20:50] LABS: PATIENT TEMP 37.7
[2021-04-19] MEDS: CAPTOPRIL 25 MG (CAPOTEN) TAB PO SCH ×2 (20:53→20:54)
[2021-04-19 21:33] VITALS: BP 101/60
[2021-04-19] MEDS ORDERED: ACETAMINOPHEN 325 MG TABLET PO PRN (23:45)
[2021-04-20] MEDS: NOREPINEPHRINE 8 MG/250 ML 250 ML IV SCH ×3 (01:53→19:56)
[2021-04-20 02:21] VITALS: BP 102/54
[2021-04-20] MEDS: PROPOFOL DRIP (ICU) 100 ML IV SCH ×2 (02:56→06:54)
[2021-04-20 04:53] LABS: ABG BASE EXCESS -2.4 MMOL/L (-2.5-2.5); ABG OXYGEN SATURATION 97 % (94-100); ABG PCO2 36 MMHG (35-45); ABG PO2 88 MMHG (79-93); ABG TCO2 22.7 MMOL/L (21.0-31.0)
[2021-04-20 04:55] LABS: BASOPHILS % (AUTO) 0 % (0-10); EOSINOPHILS % (AUTO) 0 % (0-10); HEMATOCRIT 47 % (40-54); HEMOGLOBIN 15.5 g/dL (13.3-17.7); LYMPHOCYTES # (AUTO) 0.7 10^3/uL (1.0-4.0); LYMPHOCYTES % (AUTO) 4 % (12-44); MEAN CORPUSCULAR HEMOGLOBIN 29 pg (25-34); MEAN CORPUSCULAR HGB CONC 33 g/dL (32-36); MEAN CORPUSCULAR VOLUME 89 fL (80-99); MEAN PLATELET VOLUME 10.5 fL (9.0-12.2); MONOCYTES # (AUTO) 0.8 10^3/uL (0.0-1.0); MONOCYTES % (AUTO) 5 % (0-12); NEUTROPHILS # (AUTO) 16.4 10^3/uL (1.8-7.8); NEUTROPHILS % (AUTO) 91 % (42-75); PLATELET COUNT 140 10^3/uL (130-400); WHITE BLOOD COUNT 18.1 10^3/uL (4.3-11.0)
[2021-04-20 04:56] LABS: ALLENS TEST ART LINE; INSPIRED O2 21%; VENTILATOR YES
[2021-04-20 04:57] LABS: PATIENT TEMP 37.5
[2021-04-20 05:03] LABS: ALBUMIN 3.6 GM/DL (3.2-4.5)
[2021-04-20 05:05] LABS: CALCIUM 7.9 MG/DL (8.5-10.1)
[2021-04-20 05:06] LABS: TOTAL PROTEIN 6.2 GM/DL (6.4-8.2)
[2021-04-20 05:07] LABS: BILIRUBIN,TOTAL 0.7 MG/DL (0.1-1.0)
[2021-04-20 05:09] LABS: CREATININE SERUM 2.43 MG/DL (0.60-1.30); PHOSPHORUS 3.1 MG/DL (2.3-4.7)
[2021-04-20 05:12] LABS: MAGNESIUM 2.4 MG/DL (1.6-2.4)
[2021-04-20] MEDS: POTASSIUM CL 10MEQ/50ML IVPB 50 ML IV SCH (05:20)
[2021-04-20] MEDS: inSUlin ASPART (NovoLOG) 1 UNIT/0.01 ML (CHARGE PER UNIT) SC SCH ×5 (05:20→23:26)
[2021-04-20] MEDS: MAGNESIUM 1 GM/100 ML IVPB 100 ML IV SCH (05:20)
[2021-04-20] MEDS: KCL 20 MEQ TAB (K-DUR) PO SCH (05:20)
[2021-04-20] MEDS: DOBUTamine DRIP 250 ML IV SCH ×3 (05:49→19:56)
[2021-04-20 06:50] VITALS: BP 120/68
[2021-04-20] MEDS: CAPTOPRIL 25 MG (CAPOTEN) TAB PO SCH (07:43)
[2021-04-20] MEDS: DexMEDEtomidine 250 ML DRIP 250 ML IV SCH (07:44)
[2021-04-20] MEDS ORDERED: DILT240C91 (07:52)
[2021-04-20] MEDS ORDERED: SPIR25TA5 (07:52)
[2021-04-20] MEDS ORDERED: RIVA20TA (07:52)
[2021-04-20] MEDS ORDERED: XARELTO (07:52)
--- NOTE | 2021-04-20 08:36 | Tele-ICU Progress Note ---
Subjective Date Seen by a Provider: Apr 20, 2021 Time Seen by a Provider: 08:26 Subjective/Events-last exam Patient today remained on mechanical ventilation but he he is arousable and following simple commands. He is off the epinephrine drip. Currently on dobutamine 5 mcg/min. Apparently his echocardiogram revealed markedly reduced with a left ventricular ejection fraction about 25% however I am still awaiting official report. Currently he is on low-dose propofol and Precedex at 1.5 mcg/kg/h. He is started putting out some urine. He developed a acute kidney injury but GFR and creatinine is stabilizing as he is putting out urine hopefully that will improve. His liver enzymes are also elevated which are probably due to hypotension. His mental status appears to be improving hence I doubt any significant hypoxic encephalopathy. I have made a video visit and discussed with the OCCUPATIONAL THERAPIST. Will decrease RR on vent and later today will consider extubation if no procedure is planned and if ok Cardiology Review of Systems ROS per attending physician Sepsis Event Evaluation Height, Weight, BMI Height: '" Weight: lbs. oz. kg; 40.42 BMI Method: Focused Exam Lactate Level 04/19/21 17:15: Lactic Acid Level 6.93*H 04/19/21 20:30: Lactic Acid Level 1.70 Exam Exam Patient acknowledged, consented, and participated in this virtual visit which was conducted using real time audio/video Vital Signs Date Time Temp Pulse Resp B/P (MAP) Pulse Ox O2 Delivery O2 Flow Rate FiO2 04/20/21 08:00 37.5 91 19 94 Mechanical Ventilator 21.00 04/20/21 07:44 98 109/58 04/20/21 07:05 37.4 04/20/21 07:00 37.4 96 13 95 Mechanical Ventilator 21.00 04/20/21 07:00 94 04/20/21 06:54 131/81 04/20/21 06:00 37.5 91 20 95 Mechanical Ventilator 21.00 04/20/21 05:49 110/67 04/20/21 05:00 37.6 92 95 Mechanical Ventilator 21.00 04/20/21 04:30 Mechanical Ventilator 21 04/20/21 04:00 37.5 107 22 95 Mechanical Ventilator 21.00 04/20/21 03:00 103 21 95 Mechanical Ventilator 21.00 04/20/21 02:56 107/58 04/20/21 02:21 97 20 95 21 04/20/21 02:00 98 21 95 Mechanical Ventilator 21.00 04/20/21 01:39 Mechanical Ventilator 21.00 04/20/21 01:00 90 04/20/21 01:00 92 20 97 Mechanical Ventilator 28.00 04/20/21 00:00 Mechanical Ventilator 28 04/20/21 00:00 89 20 97 Mechanical Ventilator 28.00 04/19/21 23:42 108/63 04/19/21 23:28 98 72/42 04/19/21 23:00 101 20 97 Mechanical Ventilator 28.00 04/19/21 22:34 98/59 04/19/21 22:00 101 20 96 Mechanical Ventilator 28.00 04/19/21 21:33 106 20 97 28 04/19/21 21:32 Mechanical Ventilator 28.00 04/19/21 21:00 37.8 108 21 98 Mechanical Ventilator 35.00 04/19/21 20:00 Mechanical Ventilator 35 04/19/21 20:00 37.6 111 22 98 Mechanical Ventilator 35.00 04/19/21 19:24 37.4 122 20 97 Mechanical Ventilator 35.00 04/19/21 19:00 114 04/19/21 19:00 37.3 117 21 98 Mechanical Ventilator 60.00 04/19/21 18:18 12 95/72 04/19/21 18:10 109 22 98 40 04/19/21 18:00 37.1 101 20 98 Mechanical Ventilator 60.00 04/19/21 17:53 104 128/105 04/19/21 17:50 105 132/106 04/19/21 17:50 109 130/109 04/19/21 17:49 105 133/106 04/19/21 17:38 102 122/103 04/19/21 17:22 83 87/65 04/19/21 17:19 87 90/69 04/19/21 17:00 37.2 85 22 100 Mechanical Ventilator 60.00 04/19/21 16:51 97 Mechanical Ventilator 60 04/19/21 16:00 37.1 90 26 123/79 (94) 97 Mechanical Ventilator 60.00 04/19/21 15:17 92 26 94 40 04/19/21 15:00 37.2 98 18 133/78 (96) 93 Mechanical Ventilator 60.00 04/19/21 14:28 37.2 Mechanical Ventilator 60.00 04/19/21 14:00 109 19 155/125 (135) 97 Mechanical Ventilator 60.00 04/19/21 13:45 111 19 162/127 (139) 97 Mechanical Ventilator 60.00 04/19/21 13:41 113 04/19/21 13:20 114 20 96 60 04/19/21 12:42 90 16 112/67 97 Mechanical Ventilator 04/19/21 11:50 35.6 167 14 163/100 (121) 98 Ambu Bag 15.00 I & O 04/20/21 07:00 Intake Total 100 ml Output Total 1250 ml Balance -1150 ml Height & Weight Height: '" Weight: lbs. oz. kg; 40.42 BMI Method: General Appearance: WD/WN HEENT: Normal ENT Inspection Neck: Normal Inspection Respiratory: Lungs Clear (with bagging through ETT) Cardiovascular: Other (no pulse on presentation) Capillary Refill: Greater Than 3 Seconds Gastrointestinal: non tender, soft, no organomegaly Extremity: Normal Inspection Neurologic/Psychiatric: Other (GCS = 3) Skin: Normal Color, Warm/Dry Other comments exam per attending physician Results Lab Laboratory Tests 04/19/21 12:31 04/19/21 17:15 04/20/21 04:40 Meds reviewed Radiology cxr reviewed Assessment/Plan Assessment/Plan 1. Status post cardiac arrest with ventricular fibrillation/ventricular tachycardia probably due to underlying previously undiagnosed with cardiomyopathy. Etiology to be determined. 2. Acute hypoxic respiratory failure improving. 3. Lactic acidosis improving. 4. Acute kidney injury improving. Currently GFR and creatinine is stabilizing and he is putting out some urine. 5. Elevated liver enzymes most likely due to hypotension. Recommendations 1. We will decrease respiratory rate on the vent to 14 and repeat blood gases later. Depending upon his status will consider SBT today and if possible will extubate him. 2. His mental status improving currently he is following commands despite being on sedation. 3. Continue dobutamine per cardiology. 4. Patient eventually need AICD but I will leave that up to cardiology. 5. Any antiarrhythmics per cardiology. 6. We will continue to monitor his BUN/creatinine and liver enzymes. 7. Still awaiting urine drug screen Critical Care: Ventilator Management Time spent with patient (mins): 35 Diagnosis/Problems Diagnosis/Problems (1) Ventricular fibrillation (2) Cardiac arrest (3) Cardiogenic shock (4) Acute respiratory failure (5) Abnormal liver enzymes (6) UMU (acute kidney injury) BRIAN CAREY MD Apr 20, 2021 08:36
--- NOTE | 2021-04-20 09:01 | Cardiology Progress Note ---
Progress Note-Cardiology Events since last exam Date Seen by Provider: Apr 20, 2021 Time Seen by Provider: 08:55 Events since last exam Overnight he was weaned off norepinephrine. He remains on dobutamine at 5 mc g/kg/min. His lidocaine infusion was discontinued when the bag finished. He has not had any arrhythmias. Early this morning his sedation was decreased and he was following commands. His sedation has now been stopped. He was not placed on hypothermia. I am not able to obtain any history from the patient because he is still coming off sedation. Vitals Last set of Vitals Signs Vital Signs 04/20/21 07:44 B/P (MAP) 109/58 Labs Labs Laboratory Tests 04/19/21 12:31 04/19/21 17:15 04/20/21 04:40 Exam Vital Signs Vital Signs Date Time Temp Pulse Resp B/P (MAP) Pulse Ox O2 Delivery O2 Flow Rate FiO2 04/20/21 08:00 Mechanical Ventilator 21 04/20/21 08:00 37.5 87 20 94 21.00 Physical Exam General: Intubated and sedated. Well nourished and appears stated age. Eye: Conjunctivae are clear. There are no xanthelasma. HENT: Normocephalic. Atraumatic. Carotid pulsations 2/2 without bruits. Neck: Jugular venous pressure does not appear elevated. No thyromegaly appreciated. Respiratory: Symmetrical expansion bilaterally. Coarse breath sounds to the ventilator. Cardiovascular: Normal rate. Regular rhythm. No murmur. No gallop. Point of maximal impulse is not appear displaced. Good pulses equal in all extremities. No edema. Gastrointestinal: Soft. Normal bowel sounds. Skin: Skin turgor is normal. There is no pallor. Musculoskeletal: No obvious deformities. Neurologic: Intubated and sedated. Psychiatric: Not obtainable due to clinical status. Labs Laboratory Tests Test 04/19/21 12:31 04/19/21 12:32 04/19/21 13:53 04/19/21 17:04 Range/Units White Blood Count 17.5 H 4.3-11.0 10^3/uL Red Blood Count 5.16 4.30-5.52 10^6/uL Hemoglobin 15.0 13.3-17.7 g/dL Hematocrit 51 40-54 % Mean Corpuscular Volume 98 80-99 fL Mean Corpuscular Hemoglobin 29 25-34 pg Mean Corpuscular Hemoglobin Concent 30 L 32-36 g/dL Red Cell Distribution Width 13.6 10.0-14.5 % Platelet Count 188 130-400 10^3/uL Mean Platelet Volume 11.7 9.0-12.2 fL Immature Granulocyte % (Auto) 7 % Neutrophils (%) (Auto) 52 42-75 % Lymphocytes (%) (Auto) 33 12-44 % Monocytes (%) (Auto) 7 0-12 % Eosinophils (%) (Auto) 0 0-10 % Basophils (%) (Auto) 1 0-10 % Neutrophils # (Auto) 9.1 H 1.8-7.8 10^3/uL Lymphocytes # (Auto) 5.8 H 1.0-4.0 10^3/uL Monocytes # (Auto) 1.3 H 0.0-1.0 10^3/uL Eosinophils # (Auto) 0.1 0.0-0.3 10^3/uL Basophils # (Auto) 0.1 0.0-0.1 10^3/uL Immature Granulocyte # (Auto) 1.2 H 0.0-0.1 10^3/uL Neutrophils % (Manual) 47 % Lymphocytes % (Manual) 34 % Monocytes % (Manual) 11 % Basophils % (Manual) 2 % Band Neutrophils 2 % Reactive Lymphocytes 4 % Blood Morphology Comment NORMAL SARS-CoV-2 RNA (RT-PCR) Not Detected Not Detecte Glucometer 147 H 70-110 MG/DL Blood Gas Puncture Site L [facility] Blood Gas Patient Temperature 37.3 Arterial Blood pH 7.19 *L 7.37-7.43 Arterial Blood Partial Pressure CO2 40 35-45 MMHG Arterial Blood Partial Pressure O2 136 H 79-93 MMHG Arterial Blood HCO3 15 *L 23-27 MMOL/L Arterial Blood Total CO2 16.0 L 21.0-31.0 MMOL/L Arterial Blood Oxygen Saturation 99 94-100 % Arterial Blood Base Excess -11.8 L -2.5-2.5 MMOL/L Larry Test ART LINE Blood Gas Ventilator Setting YES Blood Gas Inspired Oxygen 50% Test 04/19/21 17:15 04/19/21 17:18 04/19/21 20:30 04/19/21 20:42 Range/Units Sodium Level 145 135-145 MMOL/L Potassium Level 3.5 L 3.6-5.0 MMOL/L Chloride Level 110 H 98-107 MMOL/L Carbon Dioxide Level 15 L 21-32 MMOL/L Anion Gap 20 H 5-14 MMOL/L Blood Urea Nitrogen 33 H 7-18 MG/DL Creatinine 2.36 H 0.60-1.30 MG/DL Estimat Glomerular Filtration Rate 29 BUN/Creatinine Ratio 14 Glucose Level 213 H 70-105 MG/DL Lactic Acid Level 6.93 *H 1.70 0.50-2.00 MMOL/L Calcium Level 8.8 8.5-10.1 MG/DL Corrected Calcium 9.0 8.5-10.1 MG/DL Magnesium Level 3.0 H 1.6-2.4 MG/DL Total Bilirubin 1.0 0.1-1.0 MG/DL Aspartate Amino Transf (AST/SGOT) 1033 H 5-34 U/L Alanine Aminotransferase (ALT/SGPT) 1068 H 0-55 U/L Alkaline Phosphatase 54 40-136 U/L Total Creatine Kinase 429 H 30-200 U/L Creatine Kinase MB 6.1 <6.6 NG/ML Troponin I 0.508 *H <0.028 NG/ML Total Protein 6.2 L 6.4-8.2 GM/DL Albumin 3.7 3.2-4.5 GM/DL Triglycerides Level 131 <150 MG/DL Glucometer 181 H 70-110 MG/DL Blood Gas Puncture Site ARTLINE Blood Gas Patient Temperature 37.7 Arterial Blood pH 7.35 L 7.37-7.43 Arterial Blood Partial Pressure CO2 41 35-45 MMHG Arterial Blood Partial Pressure O2 152 H 79-93 MMHG Arterial Blood HCO3 22 L 23-27 MMOL/L Arterial Blood Total CO2 23.1 21.0-31.0 MMOL/L Arterial Blood Oxygen Saturation 99 94-100 % Arterial Blood Base Excess -2.7 L -2.5-2.5 MMOL/L Larry Test ART LINE Blood Gas Ventilator Setting YES Blood Gas Inspired Oxygen 35% Test 04/20/21 01:06 04/20/21 04:40 Range/Units Glucometer 139 H 70-110 MG/DL White Blood Count 18.1 H 4.3-11.0 10^3/uL Red Blood Count 5.30 4.30-5.52 10^6/uL Hemoglobin 15.5 13.3-17.7 g/dL Hematocrit 47 40-54 % Mean Corpuscular Volume 89 80-99 fL Mean Corpuscular Hemoglobin 29 25-34 pg Mean Corpuscular Hemoglobin Concent 33 32-36 g/dL Red Cell Distribution Width 13.8 10.0-14.5 % Platelet Count 140 130-400 10^3/uL Mean Platelet Volume 10.5 9.0-12.2 fL Immature Granulocyte % (Auto) 1 % Neutrophils (%) (Auto) 91 H 42-75 % Lymphocytes (%) (Auto) 4 L 12-44 % Monocytes (%) (Auto) 5 0-12 % Eosinophils (%) (Auto) 0 0-10 % Basophils (%) (Auto) 0 0-10 % Neutrophils # (Auto) 16.4 H 1.8-7.8 10^3/uL Lymphocytes # (Auto) 0.7 L 1.0-4.0 10^3/uL Monocytes # (Auto) 0.8 0.0-1.0 10^3/uL Eosinophils # (Auto) 0.0 0.0-0.3 10^3/uL Basophils # (Auto) 0.0 0.0-0.1 10^3/uL Immature Granulocyte # (Auto) 0.1 0.0-0.1 10^3/uL Percent Immature Platelet Fraction 3.0 0.0-7.6 % Blood Gas Puncture Site ARTLINE Blood Gas Patient Temperature 37.5 Arterial Blood pH 7.40 7.37-7.43 Arterial Blood Partial Pressure CO2 36 35-45 MMHG Arterial Blood Partial Pressure O2 88 79-93 MMHG Arterial Blood HCO3 22 L 23-27 MMOL/L Arterial Blood Total CO2 22.7 21.0-31.0 MMOL/L Arterial Blood Oxygen Saturation 97 94-100 % Arterial Blood Base Excess -2.4 -2.5-2.5 MMOL/L Larry Test ART LINE Blood Gas Ventilator Setting YES Blood Gas Inspired Oxygen 21% Sodium Level 144 135-145 MMOL/L Potassium Level 5.0 3.6-5.0 MMOL/L Chloride Level 111 H 98-107 MMOL/L Carbon Dioxide Level 19 L 21-32 MMOL/L Anion Gap 14 5-14 MMOL/L Blood Urea Nitrogen 37 H 7-18 MG/DL Creatinine 2.43 H 0.60-1.30 MG/DL Estimat Glomerular Filtration Rate 28 BUN/Creatinine Ratio 15 Glucose Level 139 H 70-105 MG/DL Calcium Level 7.9 L 8.5-10.1 MG/DL Corrected Calcium 8.2 L 8.5-10.1 MG/DL Phosphorus Level 3.1 2.3-4.7 MG/DL Magnesium Level 2.4 1.6-2.4 MG/DL Total Bilirubin 0.7 0.1-1.0 MG/DL Aspartate Amino Transf (AST/SGOT) 696 H 5-34 U/L Alanine Aminotransferase (ALT/SGPT) 1080 H 0-55 U/L Alkaline Phosphatase 47 40-136 U/L Total Creatine Kinase 986 H 30-200 U/L Total Protein 6.2 L 6.4-8.2 GM/DL Albumin 3.6 3.2-4.5 GM/DL Diagnosis/Problems Diagnosis/Problems (1) Cardiac arrest Assessment & Plan: Exact etiology unclear. There is no evidence of [id number]-[id number], Brugada syndrome, or prolonged or short QT on his resting electrocardiogram. He underwent emergency cardiac catheterization that did not show any significant coronary artery disease. On the other hand, he has severe left ventricular systolic dysfunction. This raises a concern for cardiomyopathy of undetermined etiology with primary arrhythmogenic cardiac arrest. On the other hand, he could have globally stunned myocardium from the prolonged course of resuscitation. I will plan on a follow-up echocardiogram in the next 24-48 hours to see if there is any improvement in the ejection fraction. He has been started on on guideline directed medical therapy with low-dose beta-jinny and ROSSANA inhibitor. I was initially thinking of discharging him with a LifeVest. However, after speaking with an hydrologic modeler, it would be more appropriate to have him undergo defibrillator implantation for secondary prevention of sudden cardiac , prior to discharge. I do not implant defibrillators. My 2 partners implant defibrillators but both are out of town. As such, he will most likely need to be transferred to another facility for defibrillator implantation. I am tentatively thinking of transferring him to [facility] tomorrow. (2) Ventricular fibrillation Assessment & Plan: Unclear etiology. As above, there is no evidence of ECG a bnormalities on his resting electrocardiogram that would confer increased risk of sudden cardiac . I will cancel the order for the LifeVest and plan on defibrillator implantation prior to discharge. As above, this will most likely need to be done at an outside hospital. (3) Cardiomyopathy Assessment & Plan: As above, unclear whether or not this was a pre-existing cardiomyopathy or if he has global stunning due to the prolonged resuscitative efforts. As above, I have placed him on guideline directed medical therapy at very low doses. I will plan on a follow-up echocardiogram tomorrow. Regardless of his ejection fraction, we will plan to proceed with defibrillator implantation prior to discharge as outlined above. (4) Acute on chronic respiratory failure with hypoxemia Assessment & Plan: This was most likely due to the cardiac arrest. He is now intubated. Sedation has been discontinued and we will attempt a weaning trial later today. The eICU and hospitalist are following the patient in this regard. (5) Troponin level elevated Assessment & Plan: Likely a type II non-ST elevation myocardial infarction related to supply/demand mismatch due to prolonged CPR of approximately 50 minutes. I will start him on aspirin and continue beta-jinny. No indication for clopidogrel or other antiplatelet agent since the patient has normal coronary anatomy. (6) Shock liver Assessment & Plan: Most likely related to the prolonged CPR. Typically, this will resolve with conservative management. (7) Acute kidney injury Assessment & Plan: As with the shock liver, this was most likely due to the prolonged CPR and should improve with supportive measures. (8) DVT prophylaxis Assessment & Plan: SCDs are in place. I will also start proton pump inhibitor for GI prophylaxis. PALOMA GANDHI JR, MD Apr 20, 2021 09:01
--- NOTE | 2021-04-20 09:08 | Diagnostic Imaging Report ---
INDICATION: Respiratory failure. ICU care. Follow-up ventilator support. COMPARISON STUDY: Chest from yesterday. FINDINGS: Frontal view of the chest demonstrates an endotracheal tube and an enteric tube to remain in place. There has been placement of a right jugular catheter with its tip at the atriocaval junction. Pulmonary congestion has resolved. The heart size is within normal limits. IMPRESSION: There is been interval extubation with resolution of pulmonary congestion. Central venous catheter is been placed in good position. Dictated by: Dictated on workstation # [id number]
--- NOTE | 2021-04-20 09:11 | Progress Note - Hospitalist ---
Subjective HPI/CC On Admission Date Seen by Provider: Apr 20, 2021 Time Seen by Provider: 09:07 Pt is a 50yoCM with an apparent PMH of a fib who presented to the ER due to cardiac arrest. He is unable to provide me any history and all history is obtained from the records. He was apparently exercising at a local gym and collapsed. Per ER note he was awake and tlaking with EMS when they arrived and he was found to be in v-tach. They were preparing for synchronized cardioversion in the field when he converted to v fib. He was then intuabted and defibrillated but remained in refractory v fib. In the ER here he was started on lidocaine and they continued to follow ACLS algorithms for pulseless v-fib. He ultimately developed ROSC after a 300mg amiodarone bolus and defibrillation. He was taken emergently to the label drier for possible intervention. Per Dr Saldana cath was clean. He was admitted to the ICU and I am consulted for medical management. Subjective/Events-last exam Pt remains intubated and sedated. No ROS possible. KUSUM cai TeleICU plan to try to wean off vent today. Focused Exam Lactate Level 04/19/21 17:15: Lactic Acid Level 6.93*H 04/19/21 20:30: Lactic Acid Level 1.70 Objective Exam Vital Signs Vital Signs Date Time Temp Pulse Resp B/P (MAP) Pulse Ox O2 Delivery O2 Flow Rate FiO2 04/20/21 08:00 Mechanical Ventilator 21 04/20/21 08:00 37.5 87 20 94 21.00 Capillary Refill : Less Than 3 Seconds General Appearance: Obese, Other (sedated on vent) Respiratory: Lungs Clear, No Respiratory Distress Cardiovascular: Regular Rate, Rhythm, No Murmur Gastrointestinal: Normal Bowel Sounds, Non Tender, Soft Genital/Rectal: Other (argueta, hematuria resolved) Extremity: No Calf Tenderness, No Pedal Edema Neurologic/Psychiatric: Other (sedated, appears comfortable) Skin: Normal Color, Warm/Dry Results/Procedures Lab Laboratory Tests 04/19/21 12:31 04/19/21 17:15 04/20/21 04:40 Patient resulted labs reviewed. Imaging: Reviewed Imaging Report Assessment/Plan Assessment and Plan Assess & Plan/Chief Complaint Cardiac arrest due to ventricular arrythmia with ROSC Nonischemic cardiomyopathy Acute respiratory failure s/p cath with reported clean coronaries currently on dobutamine gtt EF 20-25%, repeat tomorrow to see if falsely depressed from arrest CT head negative for ICH Covid negative UDS ordered, pending Discussed with Dr Saldana who plans for possible transfer for AICD placement when more clinically stable Maintain on vent- management per eICU- hopeful to wean today UMU Creatinine not back on admission yesterday- POA Continue IVF Likely secondary to poor perfusion during code, trend Transaminitis Again POA but labs were not available Improving today Likely shock liver Leukocytosis Likely reactive- stable Hyperglycemia Fasting 139 Continue SSI DVT ppx: SCDs Critical Care Ventilator Management Diagnosis/Problems Diagnosis/Problems (1) Acute respiratory failure (2) Ventricular fibrillation (3) Ventricular tachycardia (4) Hyperglycemia (5) Cardiogenic shock (6) Cardiac arrest BUBBA LOPEZ MD Apr 20, 2021 09:11
[2021-04-20] MEDS ORDERED: ASPIRIN 81 MG CHEW (CHILDREN'S ASA) PO ONE (09:30)
[2021-04-20] MEDS ORDERED: PANTOPRAZOLE 40 MG (PROTONIX) TAB PO ONE (09:30)
[2021-04-20 09:54] VITALS: BP 112/65
[2021-04-20 12:31] LABS: ABG OXYGEN SATURATION 98 % (94-100); ABG PCO2 31 MMHG (35-45); ABG PH 7.44 (7.37-7.43); ABG PO2 98 MMHG (79-93); ABG TCO2 21.4 MMOL/L (21.0-31.0)
[2021-04-20 12:34] LABS: ALLENS TEST YES-POS; INSPIRED O2 21%; PATIENT TEMP 37.2; VENTILATOR YES
[2021-04-20] MEDS ORDERED: DOBUTamine DRIP 250 ML IV ONE (13:59)
[2021-04-20] MEDS ORDERED: RIVAROXABAN 20 MG TABLET (XARELTO) PO SCH (17:00)
[2021-04-20] MEDS ORDERED: meTOprolol 5 MG/5 ML (LOPRESSOR) VIAL ONE (17:02)
[2021-04-20] MEDS ORDERED: DIGOXIN 0.25 MG/ML (LANOXIN) 2 ML AMP ONE (17:04)
[2021-04-20] MEDS ORDERED: meTOprolol 5 MG/5 ML (LOPRESSOR) VIAL IV ONE (17:15)
[2021-04-20] MEDS ORDERED: AMIODARONE FOR BOLUS 150 MG in D5W 100 ML IVPB 100 ML IV ONE (17:15)
[2021-04-20] MEDS ORDERED: AMIODARONE (BOLUS) 150 MG/3 ML IV ONE (17:15)
[2021-04-20] MEDS ORDERED: DIGOXIN 0.25 MG/ML (LANOXIN) 2 ML AMP IV ONE ×2 (17:15)
[2021-04-20] MEDS ORDERED: AMIODARONE 450 MG/9 ML (CORDARONE) VIAL IV ONE (17:16)
[2021-04-20] MEDS ORDERED: D5W 100 ML IVPB 100 ML IV ONE (17:17)
[2021-04-20] MEDS ORDERED: D5W IV SOLUTION (EXCEL) 250 ML IV ONE (17:19)
[2021-04-20] MEDS: AMIODARONE INJECTION 450 MG in D5W IV SOLUTION (EXCEL) 250 ML IV SCH (17:26)
[2021-04-20 18:09] LABS: POTASSIUM 4.1 MMOL/L (3.6-5.0)
[2021-04-20 18:10] LABS: CALCIUM 8.6 MG/DL (8.5-10.1)
[2021-04-20 18:15] LABS: CREATININE SERUM 2.48 MG/DL (0.60-1.30); PHOSPHORUS 2.8 MG/DL (2.3-4.7)
[2021-04-20 18:17] LABS: MAGNESIUM 2.2 MG/DL (1.6-2.4)
[2021-04-20] MEDS ORDERED: ACETAMINOPHEN 500 MG TAB (TYLENOL) PO PRN (20:30)
[2021-04-20 21:01] LABS: BILIRUBIN,URINE NEGATIVE (NEGATIVE); CLARITY,URINE TURBID; COLOR,URINE YELLOW; GLUCOSE, URINE (UA) NEGATIVE (NEGATIVE); KETONES,URINE TRACE (NEGATIVE); LEUKOCYTE ESTERASE ,URINE NEGATIVE (NEGATIVE); NITRITE,URINE NEGATIVE (NEGATIVE); PH,URINE 5.5 (5-9); PROTEIN,URINE 2+ (NEGATIVE)
[2021-04-20 21:10] LABS: AMORPHOUS SEDIMENT,UR LARGE AMOR URATES /LPF; BACTERIA,URINE LARGE /HPF; RBC,URINE 50-100 /HPF; WBC,URINE 50-100 /HPF
[2021-04-20 21:11] LABS: GRANULAR CASTS,URINE 25-50 /LPF
[2021-04-20 21:30] LABS: AMPHETAMINE SCREEN, URINE NEGATIVE (NEGATIVE); BARBITURATE SCREEN URINE NEGATIVE (NEGATIVE); BENZODIAZEPINES SCREEN URINE NEGATIVE (NEGATIVE); CANNABINOID SCREEN, URINE NEGATIVE (NEGATIVE); COCAINE SCREEN URINE NEGATIVE (NEGATIVE); METHADONE STAT NEGATIVE (NEGATIVE); METHAMPHETAMINE SCREEN URINE S NEGATIVE (NEGATIVE); OPIATE SCREEN URINE NEGATIVE (NEGATIVE); OXYCODONE STAT NEGATIVE (NEGATIVE); PROPOXYPHENE STAT NEGATIVE (NEGATIVE); TRICYCLIC ANTIDEPRESSANTS SCRE NEGATIVE (NEGATIVE)
[2021-04-21] MEDS: AMIODARONE INJECTION 450 MG in D5W IV SOLUTION (EXCEL) 250 ML IV SCH (00:55)
[2021-04-21] MEDS: CEFEPIME INJECTION 1,000 MG in WATER (STERILE) FOR INJECTION 10 ML IV SCH ×2 (00:57→08:51)
[2021-04-21 04:49] LABS: BASOPHILS % (AUTO) 0 % (0-10); EOSINOPHILS % (AUTO) 0 % (0-10); HEMATOCRIT 41 % (40-54); HEMOGLOBIN 13.8 g/dL (13.3-17.7); LYMPHOCYTES % (AUTO) 6 % (12-44); MEAN CORPUSCULAR HEMOGLOBIN 30 pg (25-34); MEAN CORPUSCULAR HGB CONC 34 g/dL (32-36); MEAN CORPUSCULAR VOLUME 90 fL (80-99); MONOCYTES % (AUTO) 7 % (0-12); NEUTROPHILS # (AUTO) 13.8 10^3/uL (1.8-7.8); NEUTROPHILS % (AUTO) 86 % (42-75); PLATELET COUNT 136 10^3/uL (130-400); WHITE BLOOD COUNT 16.1 10^3/uL (4.3-11.0)
[2021-04-21 04:50] LABS: ALBUMIN 3.3 GM/DL (3.2-4.5); POTASSIUM 4.1 MMOL/L (3.6-5.0)
[2021-04-21 04:52] LABS: CALCIUM 8.1 MG/DL (8.5-10.1)
[2021-04-21 04:53] LABS: TOTAL PROTEIN 5.7 GM/DL (6.4-8.2)
[2021-04-21 04:55] LABS: BILIRUBIN,TOTAL 1.1 MG/DL (0.1-1.0)
[2021-04-21 04:56] LABS: PHOSPHORUS 3.8 MG/DL (2.3-4.7)
[2021-04-21 04:57] LABS: CREATININE SERUM 2.3 MG/DL (0.60-1.30)
[2021-04-21 05:00] LABS: MAGNESIUM 2.2 MG/DL (1.6-2.4)
[2021-04-21] MEDS: DOBUTamine DRIP 250 ML IV SCH ×2 (05:26→11:10)
[2021-04-21] MEDS: POTASSIUM CL 10MEQ/50ML IVPB 50 ML IV SCH (05:27)
[2021-04-21] MEDS: NOREPINEPHRINE 8 MG/250 ML 250 ML IV SCH (05:27)
[2021-04-21] MEDS: KCL 20 MEQ TAB (K-DUR) PO SCH (05:27)
[2021-04-21] MEDS: MAGNESIUM 1 GM/100 ML IVPB 100 ML IV SCH (05:27)
[2021-04-21] MEDS: inSUlin ASPART (NovoLOG) 1 UNIT/0.01 ML (CHARGE PER UNIT) SC SCH ×2 (05:27→12:15)
--- NOTE | 2021-04-21 07:19 | Tele-ICU Progress Note ---
Subjective Date Seen by a Provider: Apr 21, 2021 Time Seen by a Provider: 07:14 Subjective/Events-last exam Patient today is awake alert and oriented. Video visit made. Discussed with the GUIDE DELEGATE. His atrial fibrillation rate is controlled which is a ranging between [address]. He is on amiodarone drip. He was started on a Xarelto yesterday by the straw hat brusher. Apparently the plan is to transfer him to [facility] for possible AICD placement during this admission. His kidney function is slightly improved. Liver functions are also improving. Mental status is normal. No evidence of any hypoxic encephalopathy present. Review of Systems ROS per attending physician Sepsis Event Evaluation Height, Weight, BMI Height: '" Weight: lbs. oz. kg; 40.42 BMI Method: Focused Exam Lactate Level 04/19/21 17:15: Lactic Acid Level 6.93*H 04/19/21 20:30: Lactic Acid Level 1.70 Exam Exam Patient acknowledged, consented, and participated in this virtual visit which was conducted using real time audio/video Vital Signs Date Time Temp Pulse Resp B/P (MAP) Pulse Ox O2 Delivery O2 Flow Rate FiO2 04/21/21 06:00 85 29 100/84 (89) 98 Room Air 04/21/21 05:00 105 27 118/72 (87) 98 Room Air 04/21/21 04:00 111 26 115/63 (80) 97 Room Air 04/21/21 04:00 Room Air 04/21/21 04:00 36.2 04/21/21 03:00 95 31 113/83 (93) 97 Room Air 04/21/21 02:00 100 33 109/65 (80) 97 Room Air 04/21/21 01:00 111 04/21/21 01:00 124 14 102/65 (77) 94 Room Air 04/21/21 00:20 36.6 04/21/21 00:00 118 36 112/84 (93) 97 Room Air 04/20/21 23:26 Room Air 04/20/21 23:00 121 14 111/58 (75) 96 Room Air 04/20/21 22:00 116 30 106/61 (76) 95 Room Air 04/20/21 21:00 144 21 95/72 (80) 94 Room Air 04/20/21 20:00 38.5 04/20/21 20:00 140 20 99/61 (74) 94 Room Air 04/20/21 19:47 Room Air 04/20/21 19:29 124 24 117/75 (89) 95 Room Air 04/20/21 19:00 138 04/20/21 19:00 137 24 97/79 (85) 84 04/20/21 18:00 146 29 116/80 (92) 94 Room Air 04/20/21 17:25 158 129/91 04/20/21 17:00 158 19 129/91 (104) 96 Room Air 04/20/21 16:56 80 04/20/21 16:00 37.7 04/20/21 16:00 104 20 125/74 (91) 97 Room Air 04/20/21 16:00 Room Air 04/20/21 15:00 112 12 151/97 (115) 98 Room Air 04/20/21 14:00 38.1 93 28 84/56 (65) 98 Room Air 04/20/21 13:00 95 04/20/21 13:00 37.7 80 28 80/57 (65) 94 Mechanical Ventilator 21.00 04/20/21 12:00 Room Air 21 04/20/21 12:00 37.6 96 13 94 Mechanical Ventilator 21.00 04/20/21 11:20 83 21 95 21 04/20/21 11:00 37.5 84 24 93 Mechanical Ventilator 21.00 04/20/21 10:00 37.3 98 26 94 Mechanical Ventilator 21.00 04/20/21 09:54 102 22 94 04/20/21 09:00 37.4 91 10 95 Mechanical Ventilator 21.00 04/20/21 08:00 Mechanical Ventilator 21 04/20/21 08:00 37.5 87 20 94 Mechanical Ventilator 21.00 04/20/21 08:00 37.5 91 19 94 Mechanical Ventilator 21.00 04/20/21 07:44 98 109/58 I & O 04/21/21 07:00 Intake Total 890 ml Output Total 1425 ml Balance -535 ml Height & Weight Height: '" Weight: lbs. oz. kg; 40.42 BMI Method: General Appearance: Obese, Other (sedated on vent) HEENT: Normal ENT Inspection Neck: Normal Inspection Respiratory: Lungs Clear, No Respiratory Distress Cardiovascular: Regular Rate, Rhythm, No Murmur Capillary Refill: Less Than 3 Seconds Gastrointestinal: non tender, soft, no organomegaly Extremity: No Calf Tenderness, No Pedal Edema Neurologic/Psychiatric: Other (sedated, appears comfortable) Skin: Normal Color, Warm/Dry Results Lab Laboratory Tests 04/19/21 12:31 04/19/21 17:15 04/20/21 04:40 04/20/21 17:51 04/21/21 04:26 Meds reviewed Radiology cxr reviewed Assessment/Plan Assessment/Plan 1. Status post cardiac arrest with ventricular fibrillation/ventricular tachycardia probably due to underlying previously undiagnosed with cardiomyopathy. Etiology to be determined. 2. Acute hypoxic respiratory failure improved and extubated 3. Lactic acidosis resolved 4. Acute kidney injury improving. Currently GFR and creatinine is stabilizing and he is putting out some urine. 5. Elevated liver enzymes most likely due to hypotension now improving. 6. new onset afib with rvr on 04/20/21 now rate controlled. 7. ?UTI c/s pending Recommendations 1. He was extubated on 04/20/21 and tolerated well.. 2. His mental status now normal 3. amiodorone drip for afib. further recommendations per cardiology 4. Patient eventually need AICD but I will leave that up to cardiology. D/W Dr. Saldana Yesterday 5. Any antiarrhythmics per cardiology. 6. We will continue to monitor his BUN/creatinine and liver enzymes. 7. Urine drug screen negative. Critical Care: Critically Ill Patient Time spent with patient (mins): 35 Diagnosis/Problems Diagnosis/Problems (1) Ventricular fibrillation (2) Cardiac arrest (3) Cardiogenic shock (4) Acute respiratory failure (5) Abnormal liver enzymes (6) UMU (acute kidney injury) BRIAN CAREY MD Apr 21, 2021 07:19
[2021-04-21] MEDS ORDERED: ASPIRIN 81 MG CHEW (CHILDREN'S ASA) PO SCH (09:00)
[2021-04-21] MEDS ORDERED: PANTOPRAZOLE 40 MG (PROTONIX) TAB PO SCH (09:00)
[2021-04-21] MEDS ORDERED: CEFEPIME INJECTION 1,000 MG in WATER (STERILE) FOR INJECTION 10 ML IV SCH ×2 (09:00→15:00)
[2021-04-21 09:01] LABS: TRIGLYCERIDES 68 MG/DL (<150); VLDL CHOLESTEROL 14 MG/DL (5-40)
[2021-04-21 09:06] LABS: CHOLESTEROL 90 MG/DL (< 200)
[2021-04-21 09:07] LABS: HDL CHOLESTEROL 29 MG/DL (40-60)
--- NOTE | 2021-04-21 09:20 | Cardiology Progress Note ---
Progress Note-Cardiology Events since last exam Date Seen by Provider: Apr 21, 2021 Time Seen by Provider: 09:15 Events since last exam Late yesterday afternoon I was notified by the nurse the patient went back into atrial fibrillation. After he was extubated yesterday, he told me he has a long history of paroxysmal atrial fibrillation and has had several cardioversions in the past but then he would just revert back to atrial fibrillation. An ablation had been discussed but he was never scheduled for this. 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 When he went into atrial fibrillation, the nurse stopped his dobutamine. Short while later, the eICU got involved and gave the patient IV beta-jinny and Digoxin. They also started him on IV amiodarone. I was not made aware that any of this had occurred. He did receive a dose of Xarelto last evening. He normally takes Xarelto at home. This morning he remains in atrial fibrillation. He denies any palpitations. His chest is still sore from CPR. He denies dyspnea, syncope, or ankle edema. Vitals Last set of Vitals Signs Vital Signs 04/20/21 04/20/21 04/21/21 04/21/21 13:00 16:00 07:25 08:00 Temp 36.6 Pulse 106 Resp 29 B/P (MAP) 124/87 (99) Pulse Ox 96 O2 Delivery Room Air O2 Flow Rate 21.00 FiO2 21 Labs Labs Laboratory Tests 04/20/21 17:51 04/21/21 04:26 Exam Vital Signs Vital Signs Date Time Temp Pulse Resp B/P (MAP) Pulse Ox O2 Delivery O2 Flow Rate FiO2 04/21/21 08:00 106 29 124/87 (99) 96 Room Air 04/21/21 07:25 36.6 04/20/21 17:00 04/20/21 16:00 21 Physical Exam General: Alert. No acute distress. He is obese. Eye: No xanthelasma. HENT: Normocephalic. Neck: Jugular venous pressure does not appear elevated. Respiratory: Lungs are clear to auscultation. Respirations are non-labored. Breath sounds are equal. Symmetrical chest wall expansion. Cardiovascular: Irregular rate and rhythm. No murmur. No gallop. No edema. Gastrointestinal: Soft. Normal bowel sounds. Skin: Warm. Dry. Neurologic: Alert and oriented to person, place, time. Cranial nerves 3-11 grossly intact. Psychiatric: Cooperative. Appropriate mood & affect. Labs Laboratory Tests Test 04/20/21 11:24 04/20/21 12:24 04/20/21 17:23 04/20/21 17:51 Range/Units Glucometer 125 H 91 70-110 MG/DL Blood Gas Puncture Site L ARTLINE Blood Gas Patient Temperature 37.2 Arterial Blood pH 7.44 H 7.37-7.43 Arterial Blood Partial Pressure CO2 31 L 35-45 MMHG Arterial Blood Partial Pressure O2 98 H 79-93 MMHG Arterial Blood HCO3 20 L 23-27 MMOL/L Arterial Blood Total CO2 21.4 21.0-31.0 MMOL/L Arterial Blood Oxygen Saturation 98 94-100 % Arterial Blood Base Excess -3.0 L -2.5-2.5 MMOL/L Larry Test YES-POS Blood Gas Ventilator Setting YES Blood Gas Inspired Oxygen 21% Sodium Level 144 135-145 MMOL/L Potassium Level 4.1 3.6-5.0 MMOL/L Chloride Level 110 H 98-107 MMOL/L Carbon Dioxide Level 21 21-32 MMOL/L Anion Gap 13 5-14 MMOL/L Blood Urea Nitrogen 38 H 7-18 MG/DL Creatinine 2.48 H 0.60-1.30 MG/DL Estimat Glomerular Filtration Rate 28 BUN/Creatinine Ratio 15 Glucose Level 109 H 70-105 MG/DL Calcium Level 8.6 8.5-10.1 MG/DL Phosphorus Level 2.8 2.3-4.7 MG/DL Magnesium Level 2.2 1.6-2.4 MG/DL Test 04/20/21 20:45 04/20/21 20:50 04/20/21 23:00 04/21/21 04:26 Range/Units Procalcitonin 14.58 H <0.10 NG/ML Urine Color YELLOW Urine Clarity TURBID Urine pH 5.5 5-9 Urine Specific [place] 1.025 H 1.016-1.022 Urine Protein 2+ H NEGATIVE Urine Glucose (UA) NEGATIVE NEGATIVE Urine Ketones TRACE H NEGATIVE Urine Nitrite NEGATIVE NEGATIVE Urine Bilirubin NEGATIVE NEGATIVE Urine Urobilinogen 0.2 < = 1.0 MG/DL Urine Leukocyte Esterase NEGATIVE NEGATIVE Urine RBC (Auto) 3+ H NEGATIVE Urine RBC 50-100 H /HPF Urine WBC 50-100 H /HPF Urine Squamous Epithelial Cells NONE /HPF Urine Renal Epithelial Cells NONE /HPF Urine Crystals PRESENT H /LPF Urine Amorphous Sediment LARGE HUMBLE URATES H /LPF Urine Bacteria LARGE H /HPF Urine Casts PRESENT /LPF Urine Granular Casts 25-50 H /LPF Urine Mucus LARGE H /LPF Urine Culture Indicated YES Urine Opiates Screen NEGATIVE NEGATIVE Urine Oxycodone Screen NEGATIVE NEGATIVE Urine Methadone Screen NEGATIVE NEGATIVE Urine Propoxyphene Screen NEGATIVE NEGATIVE Urine Barbiturates Screen NEGATIVE NEGATIVE Ur Tricyclic Antidepressants Screen NEGATIVE NEGATIVE Urine Phencyclidine Screen NEGATIVE NEGATIVE Urine Amphetamines Screen NEGATIVE NEGATIVE Urine Methamphetamines Screen NEGATIVE NEGATIVE Urine Benzodiazepines Screen NEGATIVE NEGATIVE Urine Cocaine Screen NEGATIVE NEGATIVE Urine Cannabinoids Screen NEGATIVE NEGATIVE Glucometer 105 70-110 MG/DL White Blood Count 16.1 H 4.3-11.0 10^3/uL Red Blood Count 4.59 4.30-5.52 10^6/uL Hemoglobin 13.8 13.3-17.7 g/dL Hematocrit 41 40-54 % Mean Corpuscular Volume 90 80-99 fL Mean Corpuscular Hemoglobin 30 25-34 pg Mean Corpuscular Hemoglobin Concent 34 32-36 g/dL Red Cell Distribution Width 14.1 10.0-14.5 % Platelet Count 136 130-400 10^3/uL Mean Platelet Volume 11.0 9.0-12.2 fL Immature Granulocyte % (Auto) 1 % Neutrophils (%) (Auto) 86 H 42-75 % Lymphocytes (%) (Auto) 6 L 12-44 % Monocytes (%) (Auto) 7 0-12 % Eosinophils (%) (Auto) 0 0-10 % Basophils (%) (Auto) 0 0-10 % Neutrophils # (Auto) 13.8 H 1.8-7.8 10^3/uL Lymphocytes # (Auto) 1.0 1.0-4.0 10^3/uL Monocytes # (Auto) 1.0 0.0-1.0 10^3/uL Eosinophils # (Auto) 0.0 0.0-0.3 10^3/uL Basophils # (Auto) 0.0 0.0-0.1 10^3/uL Immature Granulocyte # (Auto) 0.2 H 0.0-0.1 10^3/uL Sodium Level 141 135-145 MMOL/L Potassium Level 4.1 3.6-5.0 MMOL/L Chloride Level 107 98-107 MMOL/L Carbon Dioxide Level 23 21-32 MMOL/L Anion Gap 11 5-14 MMOL/L Blood Urea Nitrogen 36 H 7-18 MG/DL Creatinine 2.30 H 0.60-1.30 MG/DL Estimat Glomerular Filtration Rate 30 BUN/Creatinine Ratio 16 Glucose Level 106 H 70-105 MG/DL Calcium Level 8.1 L 8.5-10.1 MG/DL Corrected Calcium 8.7 8.5-10.1 MG/DL Phosphorus Level 3.8 2.3-4.7 MG/DL Magnesium Level 2.2 1.6-2.4 MG/DL Total Bilirubin 1.1 H 0.1-1.0 MG/DL Aspartate Amino Transf (AST/SGOT) 181 H 5-34 U/L Alanine Aminotransferase (ALT/SGPT) 590 #H 0-55 U/L Alkaline Phosphatase 44 40-136 U/L Total Protein 5.7 L 6.4-8.2 GM/DL Albumin 3.3 3.2-4.5 GM/DL Triglycerides Level 68 <150 MG/DL Cholesterol Level 90 < 200 MG/DL LDL Cholesterol Direct 44 1-129 MG/DL VLDL Cholesterol 14 5-40 MG/DL HDL Cholesterol 29 L 40-60 MG/DL Diagnosis/Problems Diagnosis/Problems (1) Paroxysmal atrial fibrillation Assessment & Plan: This is a chronic problem for the patient. He is unaware of the atrial fibrillation. He is back on anticoagulation. He was taking diltiazem at home but due to his depressed ejection fraction, I would prefer not to give him diltiazem. I will increase his dose of carvedilol. I have discontinued the amiodarone. I have asked the nurse to contact me if he has tachycardia and I will take care of this. (2) Cardiac arrest Assessment & Plan: Exact etiology unclear. There is no evidence of Rnkar-Zhcpakepr-Xugld, Brugada syndrome, or prolonged or short QT on his resting electrocardiogram. He underwent emergency cardiac catheterization that did not show any significant coronary artery disease. On the other hand, he has severe left ventricular systolic dysfunction. This raises a concern for cardiomyopathy of undetermined etiology with primary arrhythmogenic cardiac arrest. On the other hand, he could have globally stunned myocardium from the prolonged course of resuscitation. Because of the out of hospital cardiac arrest due to vent ricular fibrillation, rather than having him go home with a LifeVest, we will proceed directly to defibrillator implantation for secondary prevention of sudden cardiac . He wanted to go to [facility] in [place] but they are full. As such, I will send him over to [facility]. The transfer should happen later today. (3) Ventricular fibrillation Assessment & Plan: Unclear etiology. As above, there is no evidence of ECG abnormalities on his resting electrocardiogram that would confer increased risk of sudden cardiac . As above, we will transfer him to another facility for defibrillator implantation. We do not have any providers in this hospital that can perform this procedure until . (4) Acute respiratory failure Assessment & Plan: He is now extubated and breathing comfortably. (5) Cardiomyopathy Assessment & Plan: As above, unclear whether or not this was a pre-existing cardiomyopathy or if he has global stunning due to the prolonged resuscitative efforts. As above, I have placed him on guideline directed medical therapy at very low doses. The archivist nonprofit foundation from [facility] plans on a cardiac MRI tomorrow. I have stopped his captopril so that I may titrate up his beta-jinny to help control his heart rates with the atrial fibrillation. For the same reason, I will hold off on giving him spironolactone. (6) Shock liver Assessment & Plan: Most likely related to the prolonged CPR. Typically, this will resolve with conservative management. His enzymes are improving. (7) Acute kidney injury Assessment & Plan: As with the shock liver, this was most likely due to the prolonged CPR and should improve with supportive measures. He has good urine output and his creatinine continues to improve. (8) Essential hypertension (9) Morbid obesity Assessment & Plan: He will need to work on weight loss after discharge. (10) DVT prophylaxis Assessment & Plan: SCDs are in place and I started a proton pump inhibitor for GI prophylaxis. He is also back on his rivaroxaban for the atrial fibrillation. PALOMA GANDHI JR, MD Apr 21, 2021 09:20
--- NOTE | 2021-04-21 09:41 | Cardiology Discharge Summary ---
Discharge Summary Hospital Course Problems Reviewed?: Yes Hospital Course Date of Admission: Apr 19, 2021 at 13:37 Admission Diagnosis : Family Physician/Provider: No,Local Physician Date of Discharge: 04/21/21 Discharge Diagnosis: [ ] Hospital Course: [ ] Labs and Pending Lab Test: Laboratory Tests 04/20/21 11:24: Glucometer 125H 04/20/21 12:24: Blood Gas Puncture Site L ARTLINE, Blood Gas Patient Temperature 37.2, Arterial Blood pH 7.44H, Arterial Blood Partial Pressure CO2 31L, Arterial Blood Partial Pressure O2 98H, Arterial Blood HCO3 20L, Arterial Blood Total CO2 21.4, Arterial Blood Oxygen Saturation 98, Arterial Blood Base Excess -3.0L, Larry Test YES-POS, Blood Gas Ventilator Setting YES, Blood Gas Inspired Oxygen 21% 04/20/21 17:23: Glucometer 91 04/20/21 17:51: Sodium Level 144, Potassium Level 4.1, Chloride Level 110H, Carbon Dioxide Level 21, Anion Gap 13, Blood Urea Nitrogen 38H, Creatinine 2.48H, Estimat Glomerular Filtration Rate 28, BUN/Creatinine Ratio 15, Glucose Level 109H, Calcium Level 8.6, Phosphorus Level 2.8, Magnesium Level 2.2 04/20/21 20:45: Procalcitonin 14.58H 04/20/21 20:50: Urine Color YELLOW, Urine Clarity TURBID, Urine pH 5.5, Urine Specific [place] 1.025H, Urine Protein 2+H, Urine Glucose (UA) NEGATIVE, Urine Ketones TRACEH, Urine Nitrite NEGATIVE, Urine Bilirubin NEGATIVE, Urine Urobilinogen 0.2, Urine Leukocyte Esterase NEGATIVE, Urine RBC (Auto) 3+H, Urine RBC 50-100H, Urine WBC 50-100H, Urine Squamous Epithelial Cells NONE, Urine Renal Epithelial Cells NONE, Urine Crystals PRESENTH, Urine Amorphous Sediment LARGE HUMBLE URATESH, Urine Bacteria LARGEH, Urine Casts PRESENT, Urine Granular Casts 25-50H, Urine Mucus LARGEH, Urine Culture Indicated YES, Urine Opiates Screen NEGATIVE, Urine Oxycodone Screen NEGATIVE, Urine Methadone Screen NEGATIVE, Urine Propoxyphene Screen NEGATIVE, Urine Barbiturates Screen NEGATIVE, Ur Tricyclic Antide pressants Screen NEGATIVE, Urine Phencyclidine Screen NEGATIVE, Urine Amphetamines Screen NEGATIVE, Urine Methamphetamines Screen NEGATIVE, Urine Benzodiazepines Screen NEGATIVE, Urine Cocaine Screen NEGATIVE, Urine Cannabinoids Screen NEGATIVE 04/20/21 23:00: Glucometer 105 04/21/21 04:26: White Blood Count 16.1H, Red Blood Count 4.59, Hemoglobin 13.8, Hematocrit 41, Mean Corpuscular Volume 90, Mean Corpuscular Hemoglobin 30, Mean Corpuscular Hemoglobin Concent 34, Red Cell Distribution Width 14.1, Platelet Count 136, Mean Platelet Volume 11.0, Immature Granulocyte % (Auto) 1, Neutrophils (%) (Auto) 86H, Lymphocytes (%) (Auto) 6L, Monocytes (%) (Auto) 7, Eosinophils (%) (Auto) 0, Basophils (%) (Auto) 0, Neutrophils # (Auto) 13.8H, Lymphocytes # (Auto) 1.0, Monocytes # (Auto) 1.0, Eosinophils # (Auto) 0.0, Basophils # (Auto) 0.0, Immature Granulocyte # (Auto) 0.2H, Sodium Level 141, Potassium Level 4.1, Chloride Level 107, Carbon Dioxide Level 23, Anion Gap 11, Blood Urea Nitrogen 36H, Creatinine 2.30H, Estimat Glomerular Filtration Rate 30, BUN/Creatinine Ratio 16, Glucose Level 106H, Calcium Level 8.1L, Corrected Calcium 8.7, Phosphorus Level 3.8, Magnesium Level 2.2, Total Bilirubin 1.1H, Aspartate Amino Transf (AST/SGOT) 181H, Alanine Aminotransferase (ALT/SGPT) 590#H, Alkaline Phosphatase 44, Total Protein 5.7L, Albumin 3.3, Triglycerides Level 68, Cholesterol Level 90, LDL Cholesterol Direct 44, VLDL Cholesterol 14, HDL Cholesterol 29L Microbiology 04/19/21 MRSA Screen - Final, Complete MRSA not isolated Home Meds Active Reported Xarelto (Rivaroxaban) 20 Mg Tablet Diltiazem 24Hr ER (Diltiazem HCl) 240 Mg Cap.er.24h Spironolactone 25 Mg Tablet Assessment/Pt DC Instructions Please refer to my progress note from today for further details and the final diagnoses list. Briefly, he presented to the hospital with out of hospital cardiac arrest due to ventricular fibrillation. After 15 minutes of CPR, he regained spontaneous circulation. He underwent emergency cardiac catheterization showed angiographically normal-appearing coronary arteries. An echocardiogram performed later that day showed severe left ventricular systolic dysfunction with an estimated ejection fraction of 20-25%. Shortly after he regained circulation, he was moving all 4 extremities and trying to remove the endotracheal tube. As such, once he was transferred to the intensive care unit, he was not placed on hypothermia protocol. The following day he was extubated and he was completely clear and remembered the events leading up to his cardiac arrest. By the day of transfer, he was sitting up in bed and doing well. He did also develop atrial fibrillation in the evening prior to transfer. Once he was extubated, he told us that he follows with a tar heel at [facility] in [facility] for paroxysmal/persistent atrial fibrillation. His diltiazem was discontinued and he was placed on beta-jinny. His rivaroxaban was resumed. He will be transferred to [facility] for cardiac MRI and defibrillator implantation. Discharge Diet: Low Fat/Low Cholesterol, Cardiac Diet Activity as Tolerated: No Consulations Consultations Hospitalist. eICU. General surgery for central line and arterial line placement. Discharge Physical Examination Allergies: Coded Allergies: No Allergy Information Available (Unverified , 04/19/21) Clinical Quality Measures End of Life/Advance Care Plan: Advance Care discuss with: patient Admission Status Admission Dx See history and physical. AMI/AHF: Ejection Fraction: <40 (ROSSANA/ARB Indicated) D/C Medications Addressed: Beta jinny D/C Inst. for HF given: Yes Reason ROSSANA-I/ARB not given: Hypotension Reason Statin not given: Liver Disease ASA Given prior to admit: No ASA po Prior to arrival: No No ASA given w/i 24hr(arrival): Not Indicated Ventricular fibrillation. DVT/VTE Risk/Contraindication: VTE Addressed: Yes VTE Present on Admission: No RFS Level Per Nursing on Admit: 2=Moderate PALOMA GANDHI JR, MD Apr 21, 2021 09:40
[2021-04-21] MEDS ORDERED: CARV6.252 PO (09:45)
--- NOTE | 2021-04-21 10:21 | Diagnostic Imaging Report ---
EXAMINATION: Chest 1 view HISTORY: Follow-up. Extubated. Respiratory failure. COMPARISON: 04/20/2021. FINDINGS: Interval removal of the endotracheal tube. Stable right internal jugular central line. There is stable cardiomegaly. Improved lung volumes are noted with improved aeration in the lung bases. No large pleural effusion or pneumothorax. IMPRESSION: 1. Improved lung volumes with improved aeration in the lung bases. 2. Interval extubation. Stable right internal jugular central line. Dictated by: Dictated on workstation # [id number]
[2021-04-21 14:18] VITALS: BP 141/95
--- NOTE | 2021-04-23 06:21 | Physician Query Clarification ---
PQ-Uncertain Diagnosis Admission/Discharge Admission Date: Apr 19, 2021 at 13:37 Discharge Date: Apr 21, 2021 at 13:10 PALOMA Huynh JR, MD The medical record reflects the following clinical scenario: History/Risk Factors: 50 y/o male patient presents with cardiac arrest found to have ventricular fibrillation, elevated troponin likely type II MT related to demand mismatch due to prolonged CPR was documented only in cardiology progress notes on 04/20. Clinical Findings: troponin-0.508 H, cardiomyopathy. Treatment: Aspirin, metoprolol. Question: Is Type II MT a clinically valid diagnosis? Type II MT was documented in the cardiology progress notes, 04/20 with no further documentation in the medical record. Please document a response in Progress Note or Discharge Summary. 1. Yes, clinically valid, condition resolved. 2. No, condition ruled out. 3. Other, with explanation of clinical findings. 4. Undetermined, no explanation for clinical findings. PHYSICIAN RESPONSE Diagnosis clinically valid: Yes, Conditon resolved Explanation of clincal finding The patient had a type II NSTEMI due to supply/demand mismatch from prolonged cardiopulmonary resuscitation. Please remember a lack of response to the above will prompt a phone page by CDI/Coding staff. In responding to this query, please exercise your independent professional judgment. The purpose of this communication is to more accurately reflect the complexity of your patients condition. The fact that a question is asked does not imply that any particular answer is desired or expected. Thank you for your timely response to this clarification. Requestors name: [ ] Phone # [ ] THIS PHYSICIAN QUERY FORM IS A PERMANENT PART OF THE MEDICAL RECORD ZOILAKEVIN Apr 23, 2021 06:21 PALOMA GANDHI JR, MD Apr 23, 2021 08:10
== END 2021-04-21 13:10 | disposition short-term general hospital (02) | DRG 280 ==
LOC: ER 11:50 → EDUNIT# 12:00 → ER 12:04 → CATH 13:22 → ICU 13:37
PROVIDERS: ADMIT Internal Medicine Cardiovascular Disease; ATTEND Internal Medicine Cardiovascular Disease
PROC: 4A023N7 Measurement of Cardiac Sampling and Pressure, Left Heart, Percutaneous Approach (ICD-10-PCS; principal; 2021-04-19)
PROC: B2111ZZ Fluoroscopy of Multiple Coronary Arteries using Low Osmolar Contrast (ICD-10-PCS; 2021-04-19)
PROC: 03HY32Z Insertion of Monitoring Device into Upper Artery, Percutaneous Approach (ICD-10-PCS; 2021-04-19)
PROC: 02HV33Z Insertion of Infusion Device into Superior Vena Cava, Percutaneous Approach (ICD-10-PCS; 2021-04-19)
PROC: 5A12012 Performance of Cardiac Output, Single, Manual (ICD-10-PCS; 2021-04-19)
PROC: 5A1945Z Respiratory Ventilation, 24-96 Consecutive Hours (ICD-10-PCS; 2021-04-19)
DX: I49.01 Ventricular fibrillation (principal); R57.0 Cardiogenic shock; I21.A1 Myocardial infarction type 2; J96.21 Acute and chronic respiratory failure with hypoxia; K72.00 Acute and subacute hepatic failure without coma; E87.2 Acidosis; N17.9 Acute kidney failure, unspecified; Z68.41 Body mass index [BMI] 40.0-44.9, adult; I10 Essential (primary) hypertension; I46.9 Cardiac arrest, cause unspecified; D72.829 Elevated white blood cell count, unspecified; Z20.822 Contact with and (suspected) exposure to COVID-19; R73.9 Hyperglycemia, unspecified; Z79.01 Long term (current) use of anticoagulants; I48.0 Paroxysmal atrial fibrillation; I95.9 Hypotension, unspecified; I42.8 Other cardiomyopathies; I87.2 Venous insufficiency (chronic) (peripheral); E66.01 Morbid (severe) obesity due to excess calories
CPT/HCPCS: 36415; 70450; 71045; 80048; 80053; 80061; 80306; 81000; 82550; 82553; 82805; 82947; 83605; 83735; 84100; 84145; 84478; 84484; 85007; 85025; 85027; 87040; 87070; 87081; 87088; 87205; 87636; 93005; 93306; 93458; 94002; 94003; 94799

== ENCOUNTER → 2021-05-06 | Outpatient (CLI) | payer BC ==
[~2021-05-06] MED LIST: CARV6.252 PO; DILT240C91; RIVA20TA; SPIR25TA5; XARELTO
== END ==
LOC: CARD 11:00
PROVIDERS: ATTEND Internal Medicine Cardiovascular Disease
DX: I51.7 Cardiomegaly (principal); I42.9 Cardiomyopathy, unspecified
CPT/HCPCS: 93306

== ENCOUNTER → 2021-06-18 | Outpatient (CLI) | payer BC ==
--- NOTE | 2021-06-18 17:02 | Diagnostic Imaging Report ---
INDICATION: Dyspnea on exertion. COMPARISON: 04/21/2021. TECHNIQUE: Two radiographs of the chest dated 06/18/2020. FINDINGS: Interval placement of a pacer/AICD with the battery pack overlying the left chest. The cardiac silhouette is at the upper limits of normal in size. No significant pulmonary vascular congestion. The lungs are clear of focal pulmonary opacity. No pleural effusion. No pneumothorax. Mild scattered osseous degenerative changes without acute osseous abnormality. IMPRESSION: Interval placement of a pacer/AICD without pneumothorax. Borderline cardiomegaly without pulmonary vascular congestion. Dictated by: Dictated on workstation # [id number]
== END ==
LOC: RAD 16:30
PROVIDERS: ATTEND Internal Medicine Cardiovascular Disease
DX: R06.09 Other forms of dyspnea (principal); I51.7 Cardiomegaly; Z95.810 Presence of automatic (implantable) cardiac defibrillator
CPT/HCPCS: 71046

== ENCOUNTER 2021-07-16 10:40 | Emergency (ER) | payer BC ==
[~2021-07-16] VITALS: Ht 182 cm; Wt 127.0 kg
[2021-07-16 11:26] LABS: BASOPHILS # (AUTO) 0.1 10^3/uL (0.0-0.1); BASOPHILS % (AUTO) 1 % (0-10); EOSINOPHILS # (AUTO) 0.1 10^3/uL (0.0-0.3); EOSINOPHILS % (AUTO) 1 % (0-10); HEMATOCRIT 44 % (40-54); HEMOGLOBIN 14.4 g/dL (13.3-17.7); LYMPHOCYTES # (AUTO) 1.6 10^3/uL (1.0-4.0); LYMPHOCYTES % (AUTO) 16 % (12-44); MEAN CORPUSCULAR HEMOGLOBIN 29 pg (25-34); MEAN CORPUSCULAR HGB CONC 33 g/dL (32-36); MEAN CORPUSCULAR VOLUME 90 fL (80-99); MEAN PLATELET VOLUME 10.3 fL (9.0-12.2); MONOCYTES # (AUTO) 0.7 10^3/uL (0.0-1.0); MONOCYTES % (AUTO) 7 % (0-12); NEUTROPHILS # (AUTO) 7.4 10^3/uL (1.8-7.8); NEUTROPHILS % (AUTO) 75 % (42-75); PLATELET COUNT 146 10^3/uL (130-400); WHITE BLOOD COUNT 9.8 10^3/uL (4.3-11.0)
[2021-07-16 11:28] LABS: ALBUMIN 4.2 GM/DL (3.2-4.5); POTASSIUM 4.3 MMOL/L (3.6-5.0)
[2021-07-16 11:29] LABS: CALCIUM 9.5 MG/DL (8.5-10.1)
[2021-07-16 11:30] LABS: TOTAL PROTEIN 7.3 GM/DL (6.4-8.2)
[2021-07-16 11:32] LABS: BILIRUBIN,TOTAL 1.1 MG/DL (0.1-1.0)
[2021-07-16 11:34] LABS: CREATININE SERUM 1.1 MG/DL (0.60-1.30)
[2021-07-16 11:37] LABS: INR 1.7 (0.8-1.4); PROTHROMBIN TIME PATIENT 20.2 SEC (12.2-14.7)
[2021-07-16 11:38] LABS: MAGNESIUM 2.1 MG/DL (1.6-2.4)
--- NOTE | 2021-07-16 11:52 | Diagnostic Imaging Report ---
INDICATION: Paresthesia, atrial fibrillation with rapid ventricular response. TECHNIQUE: Single view chest 11:39 AM. CORRELATION STUDY: 06/18/2021 FINDINGS: Left-sided pacemaker stable. Heart size is enlarged vasculature appearing slightly more prominent from prior. The lungs are clear with no consolidating infiltrate. There is no significant effusion or pneumothorax. IMPRESSION: 1. Cardiac enlargement and vasculature overall appearing slightly more prominent from prior. Dictated by: Dictated on workstation # [id number]
--- NOTE | 2021-07-16 12:02 | Diagnostic Imaging Report ---
PROCEDURE: CT head without contrast. TECHNIQUE: Multiple contiguous axial images were obtained through the brain without the use of intravenous contrast. Auto Exposure Controls were utilized during the CT exam to meet ALARA standards for radiation dose reduction. INDICATION: 50-year-old male, tingling down left face and arm. CORRELATION: 04/19/2021 FINDINGS: There is no midline shift or mass effect. The ventricles and sulci are unremarkable. No evidence for acute intracranial hemorrhage, abnormal extra-axial fluid collections or cerebral edema is present. The basilar cisterns are unremarkable. Small nodular right posterior scalp calcification. The bony calvarium is intact. The visualized paranasal sinuses and mastoid air cells are clear. IMPRESSION: Negative appearing noncontrast CT of the head. Dictated by: Dictated on workstation # [id number]
--- NOTE | 2021-07-16 12:29 | ED Cardiac General ---
History of Present Illness General Chief Complaint: Cardiac/General Problems Stated Complaint: L SIDED FACIAL,ARM TINGLING, Nursing Triage Note: PT CO OF TINGLING ON L SIDE FACE. PT STATES IS INTERMITTENT TINGLING STARTED YESTERDAY. DENIES WEAKNESS. DENIES C/P Source: patient Exam Limitations: no limitations History of Present Illness Date Seen by Provider: Jul 16, 2021 Time Seen by Provider: 11:05 Initial Comments Patient is a 50-year-old male who presents to the emergency department today with a chief complaint of tingling and numbness to the left side of his face, down his left neck and into his left arm. Patient states it has really come and gone since yesterday. He has a history of sudden cardiac with V. tach/V. fib arrest in April of this year. He is status post implanted defibrillator p lacement. He tells me he has had 2 shocks since his defibrillator was placed. He tells me he has had A. fib for several years. He is chronically anticoagulated on Xarelto. He states the last shock was about 2 weeks ago, no changes were made to his medications. He denies any recent fevers, chills, cough or congestion. He has no active chest pain. He is not short of breath. No nausea, vomiting, diarrhea or genitourinary complaints. Patient is due to see his administrative office assistant near [place] within the next couple of weeks. He is scheduled for an ablation. Patient is Covid vaccinated. Of note the patient presents in A. fib RVR with rates to as high as 150 and a systolic blood pressure of 170 on my initial evaluation. All other review of systems reviewed and negative except as stated. 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 ASA po ASBESTOS CEMENT SHEET SUPERVISOR: No Associated Systoms: Weakness Allergies and Home Medications Allergies Coded Allergies: No Allergy Information Available (Unverified , 04/19/21) Patient Home Medication List Home Medication List Reviewed: Yes Carvedilol (Carvedilol) 6.25 Mg Tablet, 6.25 MG PO BID Prescribed by: PALOMA SALDANA JR, MD on 04/21/21 9337 Diltiazem HCl (Diltiazem 24Hr ER) 240 Mg Cap.er.24h, (Reported) Entered as Reported by: ABILIO HAUSER on 04/20/21751 Rivaroxaban (Xarelto) 20 Mg Tablet, (Reported) Entered as Reported by: ABILIO HAUSER on 04/20/21751 Spironolactone (Spironolactone) 25 Mg Tablet, (Reported) Entered as Reported by: ABILIO HAUSER on 04/20/21751 Review of Systems Review of Systems Constitutional: see HPI EENTM: No Symptoms Reported Respiratory: No Symptoms Reported Cardiovascular: No Symptoms Reported Gastrointestinal: No Symptoms Reported Genitourinary: No Symptoms Reported Musculoskeletal: no symptoms reported Skin: no symptoms reported Psychiatric/Neurological: Other (Numbness, tingling to the left face, left side of the neck left shoulder and left arm) All Other Systems Reviewed Negative Unless Noted: Yes Past Cfdugcz-Fnkgoj-Ubaamj Hx Patient Social History Tobacco Use?: No Use of E-Cig and/or Vaping dev: No Substance use?: No Alcohol Use?: No Pt feels they are or have been: No Immunizations Up To Date Second COVID19 Vaccination Alvaro: BOTH MODERNA VACCINES Past Medical History Surgery/Hospitalization HX: CARDIAC ISSUES - OVER EXHAUSTION BACK SURGERY Atrial Fibrillation Family Medical History Other Conditions/Hx Physical Exam Vital Signs Vital Signs - First Documented 07/16/21 10:40 Temp 36.4 Pulse 140 Resp 27 B/P (MAP) 147/85 (105) Pulse Ox 97 Capillary Refill : Less Than 3 Seconds Height, Weight, BMI Height: '" Weight: lbs. oz. 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, Other (No focal neurologic deficits are appreciated) Skin: Normal Color, Warm/Dry Procedures/Interventions Date of ETT Placement: Apr 19, 2021 Progress/Results/Core Measures Results/Orders Lab Results Laboratory Tests Test 07/16/21 10:50 Range/Units White Blood Count 9.8 4.3-11.0 10^3/uL Red Blood Count 4.93 4.30-5.52 10^6/uL Hemoglobin 14.4 13.3-17.7 g/dL Hematocrit 44 40-54 % Mean Corpuscular Volume 90 80-99 fL Mean Corpuscular Hemoglobin 29 25-34 pg Mean Corpuscular Hemoglobin Concent 33 32-36 g/dL Red Cell Distribution Width 14.7 H 10.0-14.5 % Platelet Count 146 130-400 10^3/uL Mean Platelet Volume 10.3 9.0-12.2 fL Immature Granulocyte % (Auto) 1 % Neutrophils (%) (Auto) 75 42-75 % Lymphocytes (%) (Auto) 16 12-44 % Monocytes (%) (Auto) 7 0-12 % Eosinophils (%) (Auto) 1 0-10 % Basophils (%) (Auto) 1 0-10 % Neutrophils # (Auto) 7.4 1.8-7.8 10^3/uL Lymphocytes # (Auto) 1.6 1.0-4.0 10^3/uL Monocytes # (Auto) 0.7 0.0-1.0 10^3/uL Eosinophils # (Auto) 0.1 0.0-0.3 10^3/uL Basophils # (Auto) 0.1 0.0-0.1 10^3/uL Immature Granulocyte # (Auto) 0.1 0.0-0.1 10^3/uL Prothrombin Time 20.2 H 12.2-14.7 SEC INR Comment 1.7 H 0.8-1.4 Activated Partial Thromboplast Time 39 H 24-35 SEC Sodium Level 142 135-145 MMOL/L Potassium Level 4.3 3.6-5.0 MMOL/L Chloride Level 107 98-107 MMOL/L Carbon Dioxide Level 24 21-32 MMOL/L Anion Gap 11 5-14 MMOL/L Blood Urea Nitrogen 17 7-18 MG/DL Creatinine 1.10 0.60-1.30 MG/DL Estimat Glomerular Filtration Rate 71 BUN/Creatinine Ratio 15 Glucose Level 135 H 70-105 MG/DL Calcium Level 9.5 8.5-10.1 MG/DL Corrected Calcium 9.3 8.5-10.1 MG/DL Magnesium Level 2.1 1.6-2.4 MG/DL Total Bilirubin 1.1 H 0.1-1.0 MG/DL Aspartate Amino Transf (AST/SGOT) 17 5-34 U/L Alanine Aminotransferase (ALT/SGPT) 33 0-55 U/L Alkaline Phosphatase 64 40-136 U/L Total Protein 7.3 6.4-8.2 GM/DL Albumin 4.2 3.2-4.5 GM/DL My Orders Orders - MYLENE HARRIS MD Ed Iv/Invasive Line Start (07/16/21 11:14) Cbc With Automated Diff (07/16/21 11:14) Comprehensive Metabolic Panel (07/16/21 11:14) Protime With Inr (07/16/21 11:14) Partial Thromboplastin Time (07/16/21 11:14) Chest 1 View, Ap/Pa Only (07/16/21 11:14) Ekg Tracing (07/16/21 11:14) Magnesium (07/16/21 11:14) Ct Head Wo (07/16/21 11:14) Vital Signs/I&O 07/16/21 10:40 Temp 36.4 Pulse 140 Resp 27 B/P (MAP) 147/85 (105) Pulse Ox 97 Blood Pressure Mean: 105 Progress Progress Note : Time: 12:24 Progress Note Patient's laboratory work-up chest x-ray and CT head are reviewed and unremarkable for any acute pathology. No concerns for acute ischemic stroke. Patient remains in A. fib RVR going at the lowest about 112 up to the highest of about 144. I did call Dr. 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 fib, RVR. Patient is on metoprolol 50 mg twice da geovanny. I told Dr. Saldana at the patient is quite hypertensive today with systolic blood pressures up to 170 currently in the 1 40-1 50 range. Diastolics in the 1 10-1 15 range. He recommended 5 mg of Lopressor IV and increase his home metoprolol dosing to 100 mg twice daily. Patient has no evidence of congestive heart failure at this time. Clinically he looks well. He is no lo nger having the paresthesias in the left side of his face neck and arm. He states again that it "comes and goes". I suspect that he may be getting these paresthesias due to perfusion from the A. fib RVR. His coags are out appropriately for a patient on Xarelto. He has no demonstratable neurologic deficits. Patient is advised of the plan of care, is agreeable, all questions are sought and answered. Patient is stable for discharge. Diagnostic Imaging Diagonstic Imaging: Xray, CT Plain Films/CT/US/NM/MRI: chest Comments [facility] [place] [place] NAME: JOHAN CASTILLO [facility] REC#: [id number] PT STATUS: REG ER : 1970 PHYSICIAN: MYLENE HARRIS MD ADMIT DATE: 07/16/21/ER Draft Date of Exam:07/16/21 CT HEAD WO PROCEDURE: CT head without contrast. TECHNIQUE: Multiple contiguous axial images were obtained through the brain without the use of intravenous contrast. Auto Exposure Controls were utilized during the CT exam to meet ALARA standards for radiation dose reduction. INDICATION: 50-year-old male, tingling down left face and arm. CORRELATION: 04/19/2021 FINDINGS: There is no midline shift or mass effect. The ventricles and sulci are unremarkable. No evidence for acute intracranial hemorrhage, abnormal extra-axial fluid collections or cerebral edema is present. The basilar cisterns are unremarkable. Small nodular right posterior scalp calcification. The bony calvarium is intact. The visualized paranasal sinuses and mastoid air cells are clear. IMPRESSION: Negative appearing noncontrast CT of the head. Dictated on workstation # [id number] Dict: 07/16/21 1158 Trans: 07/16/21 1201 DO [id number] Interpreted by: CAMILLA GARCIA DO Electronically signed by: [facility] [place] [place] NAME: JOHAN CASTILLO [facility] REC#: [id number] PT STATUS: REG ER : 1970 PHYSICIAN: MYLENE HARRIS MD ADMIT DATE: 07/16/21/ER Draft Date of Exam:07/16/21 CHEST 1 VIEW, AP/PA ONLY INDICATION: Paresthesia, atrial fibrillation with rapid ventricular response. TECHNIQUE: Single view chest 11:39 AM. CORRELATION STUDY: 06/18/2021 FINDINGS: Left-sided pacemaker stable. Heart size is enlarged vasculature appearing slightly more prominent from prior. The lungs are clear with no consolidating infiltrate. There is no significant effusion or pneumothorax. IMPRESSION: 1. Cardiac enlargement and vasculature overall appearing slightly more prominent from prior. Dictated on workstation # [id number] Dict: 07/16/21 1151 Trans: 07/16/21 1152 DO [id number] Interpreted by: CAMILLA GARCIA DO Electronically signed by: Departure Impression Primary Impression: Paresthesia Additional Impression: Permanent atrial fibrillation with rapid ventricular response Disposition: HOME, SELF-CARE Condition: Stable Departure-Patient Inst. Decision time for Depature: 12:27 Referrals: NO,LOCAL PHYSICIAN (PCP) Primary Care Physician PALOMA SALDANA JR, MD Patient Instructions: Atrial Fibrillation (DC) Add. Discharge Instructions: Increase your dose of metoprolol to 100 mg twice daily. You can start with this increased dosing this evening. Please follow-up with your heart doctor that is in charge of your ablation and follow-up as directed. Drink fluids to stay well-hydrated. Dehydration can increase your rate in A. fib. Come back to the emergency department for any chest pain, nausea vomiting, un ilateral weakness with numbness/tingling, severe headache or any other emergent concerning symptoms. MYLENE HARRIS MD Jul 16, 2021 12:28
[2021-07-16] MEDS ORDERED: meTOprolol 5 MG/5 ML (LOPRESSOR) VIAL IV ONE (12:45)
[2021-07-16 14:10] VITALS: BP 138/92
== END 2021-07-16 14:10 | disposition home or self-care (01) ==
LOC: EDUNIT# 10:42 → ER 10:44
DX: R20.2 Paresthesia of skin (principal); I48.91 Unspecified atrial fibrillation; Z79.01 Long term (current) use of anticoagulants
CPT/HCPCS: 36415; 70450; 71045; 80053; 83735; 85025; 85610; 85730; 93005

== ENCOUNTER 2021-10-21 10:58 | Emergency (ER) | payer BC ==
[~2021-10-21] VITALS: Ht 72 cm; Wt 136.0 kg
--- NOTE | 2021-10-21 12:03 | Diagnostic Imaging Report ---
PROCEDURE: CT head and CT cervical spine without contrast. TECHNIQUE: Multiple contiguous axial images were obtained through the brain and cervical spine without the use of intravenous contrast. Sagittal and coronal reformations through the cervical spine were then performed. Auto Exposure Controls were utilized during the CT exam to meet ALARA standards for radiation dose reduction. INDICATION: Dizziness. Left face and arm tingling. COMPARISON: 07/16/2021. FINDINGS: CT head: No large acute territorial ischemia, mass, or hemorrhage. No midline shift or mass effect. The ventricles, cortical sulci, and basilar cisterns are patent and unremarkable. The calvarium is intact. The visualized paranasal sinuses are clear. CT cervical spine: No acute fracture or dislocation is seen in the cervical spine. No focal osseous lesions. Vertebral body heights are well-maintained. The craniocervical junction is well-maintained. Tgwaohto-qx-lwmzgw degenerative changes are seen in the cervical spine with disc osteophyte complexes and uncovertebral arthropathy. Soft tissues of the neck are unremarkable. The included lung apices are clear. IMPRESSION: 1. No hemorrhage or focal intra-axial mass. No CT evidence of large acute territorial ischemia. 2. No acute fracture or dislocation in the cervical spine. Dictated by: Dictated on workstation # [id number]
--- NOTE | 2021-10-21 12:06 | Diagnostic Imaging Report ---
INDICATION: Chest pain. TIME OF EXAM: 12:01 p.m. COMPARISON: Correlation is made with prior chest of 07/16/2021. FINDINGS: The heart size is stable. Cardiac defibrillator is in place. Lungs are clear. No infiltrates are seen. There is no effusion or pneumothorax. IMPRESSION: No acute cardiopulmonary process is detected. Dictated by: Dictated on workstation # [id number]
[2021-10-21 12:15] LABS: BASOPHILS % (AUTO) 0 % (0-10); EOSINOPHILS # (AUTO) 0.1 10^3/uL (0.0-0.3); EOSINOPHILS % (AUTO) 1 % (0-10); HEMATOCRIT 44 % (40-54); HEMOGLOBIN 14.8 g/dL (13.3-17.7); LYMPHOCYTES # (AUTO) 1.8 10^3/uL (1.0-4.0); LYMPHOCYTES % (AUTO) 22 % (12-44); MEAN CORPUSCULAR HEMOGLOBIN 29 pg (25-34); MEAN CORPUSCULAR HGB CONC 34 g/dL (32-36); MEAN CORPUSCULAR VOLUME 87 fL (80-99); MEAN PLATELET VOLUME 9.6 fL (9.0-12.2); MONOCYTES # (AUTO) 0.7 10^3/uL (0.0-1.0); MONOCYTES % (AUTO) 9 % (0-12); NEUTROPHILS # (AUTO) 5.6 10^3/uL (1.8-7.8); NEUTROPHILS % (AUTO) 67 % (42-75); PLATELET COUNT 157 10^3/uL (130-400); WHITE BLOOD COUNT 8.3 10^3/uL (4.3-11.0)
[2021-10-21 12:26] LABS: INR 1.5 (0.8-1.4); PROTHROMBIN TIME PATIENT 18.7 SEC (12.2-14.7)
[2021-10-21 12:27] LABS: ALBUMIN 4.1 GM/DL (3.2-4.5); POTASSIUM 3.8 MMOL/L (3.6-5.0)
[2021-10-21 12:28] LABS: CALCIUM 8.8 MG/DL (8.5-10.1)
[2021-10-21 12:31] LABS: BILIRUBIN,TOTAL 0.5 MG/DL (0.1-1.0)
[2021-10-21 12:33] LABS: CREATININE SERUM 0.97 MG/DL (0.60-1.30)
[2021-10-21 12:36] LABS: MAGNESIUM 2.2 MG/DL (1.6-2.4)
[2021-10-21 12:58] LABS: FREE T4 (FREE THYROXINE) 0.9 NG/DL (0.70-1.48)
--- NOTE | 2021-10-21 13:54 | ED General ---
General Chief Complaint: Cardiac/General Problems Stated Complaint: HTN Nursing Triage Note: pt complains of high BP starting 10/21/21 at 2300. Pt stated he had a BP of 180/100 with tingling in his face and left arm. Pt denied having any pain, blurred vision or SOB Source of Information: Patient, Other (Dr. Saldana) Exam Limitations: No Limitations History of Present Illness Date Seen by Provider: Oct 21, 2021 Time Seen by Provider: 11:30 Initial Comments This 50-year-old gentleman presents to the emergency room with paresthesias in his face and left arm since this morning. He notes his blood pressure has been high and uncontrolled despite compliance with his medications. He was directed to the ER by Dr. Saldana because of these paresthesias and concern for possible neurologic event. Patient is anticoagulated. He denies any weakness, change in speech, vision disturbance, facial drooping, or other focal neurologic deficits. No chest pain or SOA. He can identify no trigger for his HTN exacerbation such as excessive salt of stimulant use. Allergies and Home Medications Allergies Coded Allergies: No Allergy Information Available (Unverified , 04/19/21) Patient Home Medication List Home Medication List Reviewed: Yes Carvedilol (Carvedilol) 6.25 Mg Tablet, 6.25 MG PO BID Prescribed by: PALOMA SALDANA JR, MD on 04/21/21 0945 Diltiazem HCl (Diltiazem 24Hr ER) 240 Mg Cap.er.24h, (Reported) Entered as Reported by: ABILIO HAUSER on 04/20/21 075 Rivaroxaban (Xarelto) 20 Mg Tablet, (Reported) Entered as Reported by: ABILIO HAUSER on 04/20/21 075 Spironolactone (Spironolactone) 25 Mg Tablet, (Reported) Entered as Reported by: ABILIO HAUSER on 04/20/21 075 Review of Systems Review of Systems Constitutional: no symptoms reported EENTM: no symptoms reported Respiratory: no symptoms reported Cardiovascular: see HPI Gastrointestinal: no symptoms reported Genitourinary: no symptoms reported Musculoskeletal: no symptoms reported Skin: no symptoms reported Psychiatric/Neurological: See HPI Hematologic/Lymphatic: No Symptoms Reported Immunological/Allergic: no symptoms reported Past Eygvxuv-Kxflih-Fdjqbl Hx Patient Social History Tobacco Use?: No Use of E-Cig and/or Vaping dev: No Substance use?: No Alcohol Use?: No Pt feels they are or have been: No Immunizations Up To Date Influenza Vaccine Up-to-Date: Yes; Up-to-Date First/Initial COVID19 Vaccinat: BOTH MODERNA VACCINES Second COVID19 Vaccination Alvaro: BOTH MODERNA VACCINES Third COVID19 Vaccination Date: BOTH MODERNA VACCINES Past Medical History Surgery/Hospitalization HX: CARDIAC ISSUES - OVER EXHAUSTION BACK SURGERY Surgeries: Yes Cardiac (Heart cath 2020 with no intervention), Orthopedic Respiratory: No Cardiac: Yes (Ventricular Tachycardia) Atrial Fibrillation Neurological: No Genitourinary: No Gastrointestinal: No Musculoskeletal: Yes Chronic Back Pain Endocrine: No HEENT: No Cancer: No Psychosocial: No Family Medical History Other Conditions/Hx Physical Exam Vital Signs Vital Signs - First Documented 10/21/21 11:25 Temp 37.3 Pulse 70 Resp 18 B/P (MAP) 187/125 (145) Pulse Ox 98 O2 Delivery Room Air Capillary Refill : Less Than 3 Seconds Height, Weight, BMI Height: '" Weight: lbs. oz. 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 No focal deficits identified) Skin: Normal Color, Warm/Dry Procedures/Interventions Date of ETT Placement: Apr 19, 2021 Progress/Results/Core Measures Suspected Sepsis SIRS Temperature: Pulse: 70 Respiratory Rate: 18 Laboratory Tests 10/21/21 12:08: White Blood Count 8.3 Blood Pressure 187 /125 Mean: 145 Laboratory Tests 10/21/21 12:08: Creatinine 0.97, INR Comment 1.5H, Platelet Count 157, Total Bilirubin 0.5 Results/Orders Lab Results Laboratory Tests Test 10/21/21 12:08 Range/Units White Blood Count 8.3 4.3-11.0 10^3/uL Red Blood Count 5.05 4.30-5.52 10^6/uL Hemoglobin 14.8 13.3-17.7 g/dL Hematocrit 44 40-54 % Mean Corpuscular Volume 87 80-99 fL Mean Corpuscular Hemoglobin 29 25-34 pg Mean Corpuscular Hemoglobin Concent 34 32-36 g/dL Red Cell Distribution Width 14.5 10.0-14.5 % Platelet Count 157 130-400 10^3/uL Mean Platelet Volume 9.6 9.0-12.2 fL Immature Granulocyte % (Auto) 1 % Neutrophils (%) (Auto) 67 42-75 % Lymphocytes (%) (Auto) 22 12-44 % Monocytes (%) (Auto) 9 0-12 % Eosinophils (%) (Auto) 1 0-10 % Basophils (%) (Auto) 0 0-10 % Neutrophils # (Auto) 5.6 1.8-7.8 10^3/uL Lymphocytes # (Auto) 1.8 1.0-4.0 10^3/uL Monocytes # (Auto) 0.7 0.0-1.0 10^3/uL Eosinophils # (Auto) 0.1 0.0-0.3 10^3/uL Basophils # (Auto) 0.0 0.0-0.1 10^3/uL Immature Granulocyte # (Auto) 0.0 0.0-0.1 10^3/uL Prothrombin Time 18.7 H 12.2-14.7 SEC INR Comment 1.5 H 0.8-1.4 Activated Partial Thromboplast Time 36 H 24-35 SEC Sodium Level 139 135-145 MMOL/L Potassium Level 3.8 3.6-5.0 MMOL/L Chloride Level 106 98-107 MMOL/L Carbon Dioxide Level 25 21-32 MMOL/L Anion Gap 8 5-14 MMOL/L Blood Urea Nitrogen 15 7-18 MG/DL Creatinine 0.97 0.60-1.30 MG/DL Estimat Glomerular Filtration Rate 95 BUN/Creatinine Ratio 15 Glucose Level 98 70-105 MG/DL Calcium Level 8.8 8.5-10.1 MG/DL Corrected Calcium 8.7 8.5-10.1 MG/DL Magnesium Level 2.2 1.6-2.4 MG/DL Total Bilirubin 0.5 0.1-1.0 MG/DL Aspartate Amino Transf (AST/SGOT) 15 5-34 U/L Alanine Aminotransferase (ALT/SGPT) 17 0-55 U/L Alkaline Phosphatase 70 40-136 U/L B-Type Natriuretic Peptide 39.2 <100.0 PG/ML Total Protein 7.0 6.4-8.2 GM/DL Albumin 4.1 3.2-4.5 GM/DL Thyroid Stimulating Hormone (TSH) 2.46 0.35-4.94 UIU/ML Free Thyroxine 0.90 0.70-1.48 NG/DL My Orders Orders - EMILIA MELISSA MD Cbc With Automated Diff (10/21/21 11:39) Magnesium (10/21/21 11:39) Chest 1 View, Ap/Pa Only (10/21/21 11:39) Ekg Tracing (10/21/21 11:39) Comprehensive Metabolic Panel (10/21/21 11:39) Protime With Inr (10/21/21 11:39) Partial Thromboplastin Time (10/21/21 11:39) Monitor-Rhythm Ecg Trace Only (10/21/21 11:39) Ed Iv/Invasive Line Start (10/21/21 11:39) Bnp Mary (10/21/21 11:39) Thyroid Stimulating Hormone (10/21/21 11:39) Free T4 (Free Thyroxine) (10/21/21 11:39) Ct Head/Cervical Spine Wo (10/21/21 11:39) Vital Signs/I&O 10/21/21 10/21/21 10/21/21 11:25 11:36 14:03 Temp 37.3 37.3 Pulse 70 70 73 Resp 18 18 16 B/P (MAP) 187/125 (145) 137/86 Pulse Ox 98 98 98 O2 Delivery Room Air Room Air Capillary Refill : Less Than 3 Seconds Blood Pressure Mean: 145 Progress Note : Progress Note CT head obtained to rule out ICH and C-spine included to rule out stenosis as cause of paresthesia. BP trended down without interventions. Symptoms resolved. Workup unremarkable. Discussed with Dr. Saldana. Will increase Lisinopril to BID dosing. ECG Initial ECG Impression Date: Oct 21, 2021 Initial ECG Impression Time: 15:21 Initial ECG Rate: 67 Initial ECG Rhythm: Normal Sinus Comment NSR with not ST elevation or depression. No abnormal intervals or axis d eviation. Diagnostic Imaging Diagonstic Imaging: Xray Plain Films/CT/US/NM/MRI: chest Comments NAME: JOHAN CASTILLO [employer] REC#: [id number] PT STATUS: DEP ER : 1970 PHYSICIAN: EMILIA MELISSA MD ADMIT DATE: 10/21/21/ER Signed Date of Exam:10/21/21 CHEST 1 VIEW, AP/PA ONLY INDICATION: Chest pain. TIME OF EXAM: 12:01 p.m. COMPARISON: Correlation is made with prior chest of 07/16/2021. FINDINGS: The heart size is stable. Cardiac defibrillator is in place. Lungs are clear. No infiltrates are seen. There is no effusion or pneumothorax. IMPRESSION: No acute cardiopulmonary process is detected. Dictated by: Dictated on workstation # [id number] Dict: 10/21/21 1200 Trans: 10/21/21 1600 [id number] [id number] Interpreted by: RUSTAM CANTOR MD Electronically signed by: RUSTAM CANTOR MD 10/21/21 1600 Diagonstic Imaging: CT Plain Films/CT/US/NM/MRI: c-spine, head Comments CT head and c-spine viewed by me and report reviewed. See below: NAME: JOHAN CASTILLO [facility] REC#: [id number] PT STATUS: REG ER : 1970 PHYSICIAN: EMILIA MELISSA MD ADMIT DATE: 10/21/21/ER Signed Date of Exam:10/21/21 CT HEAD/CERVICAL SPINE WO PROCEDURE: CT head and CT cervical spine without contrast. TECHNIQUE: Multiple contiguous axial images were obtained through the brain and cervical spine without the use of intravenous contrast. Sagittal and coronal reformations through the cervical spine were then performed. Auto Exposure Controls were utilized during the CT exam to meet ALARA standards for radiation dose reduction. INDICATION: Dizziness. Left face and arm tingling. COMPARISON: 07/16/2021. FINDINGS: CT head: No large acute territorial ischemia, mass, or hemorrhage. No midline shift or mass effect. The ventricles, cortical sulci, and basilar cisterns are patent and unremarkable. The calvarium is intact. The visualized paranasal sinuses are clear. CT cervical spine: No acute fracture or dislocation is seen in the cervical spine. No focal osseous lesions. Vertebral body heights are well-maintained. The craniocervical junction is well-maintained. Uagpinlv-zh-aoguhk degenerative changes are seen in the cervical spine with disc osteophyte complexes and uncovertebral arthropathy. Soft tissues of the neck are unremarkable. The included lung apices are clear. IMPRESSION: 1. No hemorrhage or focal intra-axial mass. No CT evidence of large acute territorial ischemia. 2. No acute fracture or dislocation in the cervical spine. Dictated by: Dictated on workstation # [id number] Dict: 10/21/21 1157 Trans: 10/21/21 1216 [id number] Interpreted by: MATTHEW GILES DO Electronically signed by: MATTHEW GILES DO 10/21/21 1216 Departure Impression Primary Impression: Paresthesia Additional Impression: Episode of hypertension Disposition: 01 HOME, SELF-CARE Condition: Improved Departure-Patient Inst. Decision time for Depature: 13:45 Referrals: NO,LOCAL PHYSICIAN (PCP/Family) Primary Care Physician Patient Instructions: High Blood Pressure in Adults Add. Discharge Instructions: Drink plenty of water and consume a low-salt diet. Increase the frequency of lisinopril to 5 mg twice daily. If you are having persistent symptoms such as chest pain, paresthesias, headaches, vision changes, etc. please return to the emergency room for reevaluation. Otherwise please follow-up with Dr. Saldana next week. Call with questions or concerns. Return to care if you have other urgent medical concerns. All discharge instructions reviewed with patient and/or family. Voiced understanding. Copy Copies To 1: PALOMA SALDANA JR, MD BRUEGGEMANN, JOSHUA T MD Oct 21, 2021 13:53
[2021-10-21 14:03] VITALS: BP 137/86
== END 2021-10-21 14:07 | disposition home or self-care (01) ==
LOC: EDUNIT# 10:58 → ER 11:00
DX: R20.2 Paresthesia of skin (principal); I48.91 Unspecified atrial fibrillation; E66.9 Obesity, unspecified; Z68.41 Body mass index [BMI] 40.0-44.9, adult; Z79.01 Long term (current) use of anticoagulants
CPT/HCPCS: 36415; 70450; 71045; 72125; 80053; 83735; 83880; 84439; 84443; 85025; 85610; 85730; 93005; 93041